=== PATIENT | female | born 1995 | race Asian ===

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

== ENCOUNTER 2017-01-08 09:57 | Outpatient (CLI) | payer MEDICAID ==
[2017-01-08 10:53] LABS: APPEARANCE,URINE SLIGHTLY-CLOUDY; BILIRUBIN,URINE NEGATIVE (NEGATIVE); GLUCOSE, URINE NEGATIVE (NEGATIVE); KETONES,URINE NEGATIVE (NEGATIVE); LEUKOCYTE ESTERASE,URINE MODERATE (NEGATIVE); NITRITE,URINE NEGATIVE (NEGATIVE); PROTEIN,URINE NEGATIVE (NEGATIVE); URINE SPECIFIC GRAVITY 1.021
[2017-01-08 11:16] LABS: URINE BARBITURATES SCREEN NEGATIVE; URINE METHADONE SCREEN NEGATIVE; URINE OPIATES LOW NEGATIVE; URINE PHENCYCLIDINE SCREEN NEGATIVE
--- NOTE | 2017-01-08 11:21 | Non Stress Test Report ---
Non Stress Test Datetime Report Generated by CPN: 01/08/2017 11:21 DEMOGRAPHIC EGA NST: 39.5 INDICATION Indication for Study: Ordered by Provider; Other Indication for Study (NST) Other: Labor check MONITORING Monitor Explained: Monitor Explained; Test Explained; Patient Verbalized Understanding Time on Monitor: 01/08/2017 10:40 Time off Monitor: 01/08/2017 11:04 NST Duration: 24 NST INTERVENTIONS NST Interventions: None Physician Notified NST: Dr Lucho BABY A: [id number] BABY A Movement : Present Contraction Frequency : Irreg FHR Baseline : 135 Accelerations : 15X15 Variability : Moderate 6-25bpm NST Review: Meets Criteria for Reactive NST NST Review and Verified By : H. Letty, RN NST Results: Reactive NST REPORT Report Trigger: Send Report
== END 2017-01-08 11:25 | disposition home or self-care (01) ==
LOC: LC 09:57
PROVIDERS: ATTEND Obstetrics & Gynecology
PROC: 4A1HXCZ Monitoring of Products of Conception, Cardiac Rate, External Approach (ICD-10-PCS; principal; 2017-01-08)
DX: O47.1 False labor at or after 37 completed weeks of gestation (principal); Z3A.39 39 weeks gestation of pregnancy
CPT/HCPCS: 59025; 80307; 81005

== ENCOUNTER 2017-01-09 06:51 | Outpatient (CLI) | payer MEDICAID ==
[2017-01-09 07:37] LABS: APPEARANCE,URINE SLIGHTLY-CLOUDY; BILIRUBIN,URINE NEGATIVE (NEGATIVE); GLUCOSE, URINE NEGATIVE (NEGATIVE); KETONES,URINE NEGATIVE (NEGATIVE); LEUKOCYTE ESTERASE,URINE SMALL (NEGATIVE); NITRITE,URINE NEGATIVE (NEGATIVE); PROTEIN,URINE NEGATIVE (NEGATIVE); URINE SPECIFIC GRAVITY 1.013; UROBILINOGEN,URINE NEGATIVE mg/dL (<2.0)
[2017-01-09 07:55] LABS: URINE BARBITURATES SCREEN NEGATIVE; URINE METHADONE SCREEN NEGATIVE; URINE OPIATES LOW NEGATIVE; URINE PHENCYCLIDINE SCREEN NEGATIVE
--- NOTE | 2017-01-09 07:59 | Non Stress Test Report ---
Non Stress Test Datetime Report Generated by CPN: 01/09/2017 07:59 DEMOGRAPHIC EGA NST: 39.6 INDICATION Indication for Study: Ordered by Provider MONITORING Monitor Explained: Monitor Explained; Test Explained; Patient Verbalized Understanding Time on Monitor: 01/09/2017 07:08 Time off Monitor: 01/09/2017 07:44 NST Duration: 36 NST INTERVENTIONS NST Interventions: PO Hydration; Reposition Patient Physician Notified NST: Dr. Lucho BABY A Movement : Present Contraction Frequency : 2-12 FHR Baseline : 125 Accelerations : 15X15 Decelerations : None Variability : Moderate 6-25bpm NST Review: Meets Criteria for Reactive NST NST Review and Verified By : CAIN Navarro Results: Reactive NST REPORT Report Trigger: Send Report (Annotations: Data stored by [facility] on behalf of user)
--- NOTE | 2017-01-09 08:01 | L&D Flow Sheet ---
LD Flowsheet Datetime Report Generated by CPN: 01/09/2017 08:00 Datetime: 01/09/2017 07:45 NBP Sys/Jane/Mean (mmHg): 98 (QS system process) : 56 (QS system process) : 75 (QS system process) Pulse: 71 (QS system process) LaborFlag: Antepartum (QS system process) Datetime: 01/09/2017 07:30 Monitor Mode: External (Jerrica Sarbjit, RN) Frequency (min): 2-7 (Jerrica Marjackifmoe, RN) Quality: Mild (Jerrica Schaffer RN) Duration (sec): 60-130 (Jerrica Schaffer RN) Resting Tone (Palpate): Relaxed (Jerrica Schaffer RN) Monitor Mode: External US (Jerrica Schaffer RN) FHR Baseline Rate : 135 (Jerrica Schaffer RN) FHR Baseline Changes: No Baseline Change (Jerrica Schaffer RN) Variability: Moderate 6-25 bpm (Jerrica Schaffer RN) Accelerations: 15X15 (Jerrica Schaffer RN) Decelerations: None (Jerrica Schaffer RN) Datetime: 01/09/2017 07:20 Frequency (min): Pt states her ctxs are every 10 min (Jerrica Schaffer RN) Pain Scale: 3 (Jerrica Schaffer RN) Pain Presence: Intermittent (Jerrica Schaffer RN) Pain Type: Contraction (Jerrica Schaffer RN) Pain Location: Abdomen (Jerrica Schaffer RN) Pain Goal: 0 (Jerrica Schaffer RN) Pain Relief Measures: Comfort Measures (Jerrica Schaffer RN) Pain Coping: Breathing Through Contractions; Writhing (Jerrica Schaffer RN) Membrane Status: Intact (Jerrica Schaffer RN) Vaginal Bleeding: None (Jerrica Schaffer RN) Level of Consciousness: Fully Conscious (Jerrica Schaffer RN) DTR's/Clonus: DTRs 2+; No Clonus (Jerrica Schaffer RN) Headache: Denies (Jerrica Marhefka, RN) Breath Sounds, Left: Clear and Equal (Jerrica Marhefka, RN) Breath Sounds, Right: Clear and Equal (Jerrica Marhefka, RN) Nausea/Vomiting: Present (Jerrica Marhefka, RN) RUQ Epigastric Pain: Denies (Jerrcia Marhefka, RN) LaborFlag: Antepartum (QS system process) Datetime: 01/09/2017 07:17 NBP Sys/Jane/Mean (mmHg): 116 (QS system process) : 55 (QS system process) : 74 (QS system process) Pulse: 94 (QS system process) Respirations: 16 (Jerrica Marhefka, RN) Temperature (F): 98.2 (Jerrica Marhefka, RN) Temperature (C): 36.8 (QS system process) Temperature Route: Oral (Jerrica Marhefka, RN) LaborFlag: Antepartum (QS system process) Datetime: 01/09/2017 07:10 Dilatation (cm): 1.5 (Jerrica Marhefka, RN) Effacement (%): 80 (Jerrica Schaffer RN) Station: -1 (Jerrica Schaffer RN) Exam by: Nicole Schaffer RN (Jerrica Schaffer RN) Membrane Status: Intact (Jerrica Schaffer RN) Cervix, Consistency: Moderate (Jerrica Schaffer RN) Cervix, Position: Posterior (Jerrica Schaffer RN) Presentation 'A': Cephalic (Jerrica Schaffer RN) Datetime: 01/09/2017 07:07 Patient Position/Activity: Right Lateral; Semi-Fowlers (Jerrica Schaffer RN) Instructional Method: Verbal; Patient Instructed; Verbalized Understanding (Jerrica Schaffer RN) Plan of Care: Plan of Care Discussed (Jerrica Schaffer RN) Unit Routine: [place] to Room; Call Augustin; Bed; Unit Personnel; Monitoring; Bathroom Privileges (Jerrica Schaffer RN)
--- NOTE | 2017-01-09 10:45 | L&D Current Admission ---
Current Admit Datetime Report Generated by CPN: 01/09/2017 10:45 ADMISSION INFORMATION Chief Complaint: Contractions (01/09/2017 07:20:Jerrica Schaffer RN) Chief Complaint: Contractions (01/08/2017 10:30:Vanna Ferris RN)
--- NOTE | 2017-01-09 10:45 | L&D General Admission ---
General Admit Datetime Report Generated by CPN: 01/09/2017 10:45 INFORMATION Patient Age: 21 (12/24/2016 10:56:QS system process) EDC: 01/10/2017 00:00 (12/24/2016 11:04:Chata López RN) EDC per Ultrasound: 01/10/2017 00:00 (12/24/2016 11:04:Vanna Ferris RN) LMP: 04/05/2016 00:00 (12/24/2016 11:04:Vanna Ferris RN) : 2 (12/24/2016 11:04:Chata López RN) Para: 0 (12/24/2016 11:04:Chata López RN) Term: 0 (12/24/2016 11:04:Vanna Ferris RN) : 0 (12/24/2016 11:04:Vanna Ferris RN) Spontaneous Abortions: 0 (12/24/2016 11:04:Vanna Ferris RN) Induced Abortions: 1 (12/24/2016 11:04:Chata López RN) Livin (12/24/2016 11:04:Vanna Ferris RN) Cesareans: 0 (12/24/2016 11:04:Vanna Ferris RN) VBACs: 0 (12/24/2016 11:04:Vanna Ferris RN) Ectopic: 0 (12/24/2016 11:04:Vanna Ferris RN) Multiple Births: 0 (12/24/2016 11:04:Vanna Ferris RN) Baby, Number in Womb: 1 (12/24/2016 11:04:Vanna Ferris RN) CARE Primary Manager Data Warehousing: [facility] (12/24/2016 11:04:Chata López RN) Month of 1st Visit: 05/2016 (12/24/2016 11:04:Vanna Ferris RN) Adequate Care: Yes (12/24/2016 11:04:Vanna Ferris RN) Prepregnancy Weight (lb): 131 (12/24/2016 11:04:Vanna Ferris RN) Prepregnancy Weight (kg): 59.5 (12/24/2016 11:04:QS system process) Height (in): 67 (01/09/2017 07:04:QS system process) Height (in): 67 (01/08/2017 10:15:QS system process) Height (in): 67 (12/24/2016 12:28:QS system process) Height (in): 67 (12/24/2016 11:22:QS system process) ALLERGIES Medication Allergy: No (12/24/2016 11:04:Chata López RN) Medication Allergies: No Known Allergies (01/09/2017) (01/09/2017 07:03:QS system process) Medication Allergies: No Known Allergies (01/08/2017) (01/08/2017 10:15:QS system process) Medication Allergies: No Known Allergies (12/24/2016) (12/24/2016 11:20:QS system process) Medication Allergies: No Known Allergies (04/29/2016) (12/24/2016 10:56:QS system process) Latex Allergy: No Latex Allergies (Annotations: Data stored by CPN on behalf of user) (12/24/2016 11:04:Chata López RN) Food Allergies: None (12/24/2016 11:04:Vanna Ferris RN) Environmental Allergies: None (12/24/2016 11:04:Vanna Ferris RN) COMMUNICATION Primary Language: Trinidadian (12/24/2016 11:04:Chata López RN) Medical Tx Preferred Language: Trinidadian (12/24/2016 11:04:Vanna Ferris RN) DEMOGRAPHICS Address: [address] [place] [id number] (12/24/2016 10:56:QS system process) Zipcode: [address] (12/24/2016 10:56:QS system process) Home (12/24/2016 10:56:QS system process) SSN: [id number] (12/24/2016 10:56:QS system process) Next of Kin Name: HUAN TUCKER (12/24/2016 10:56:QS system process) Next of Kin (12/24/2016 10:56:QS system process) Next of Kin Relationship: OR (12/24/2016 10:56:QS system process) Date of : 1995 (12/24/2016 10:56:QS system process) Marital Status: Single (12/24/2016 10:56:QS system process) Sex: Female (12/24/2016 10:56:QS system process) Race: (12/24/2016 10:56:QS system process) Ethnicity: Non- or (12/24/2016 10:56:QS system process) Zoroastrianism: Faith (12/24/2016 10:56:QS system process) DRUG AND ALCOHOL USE Alcohol: No (12/24/2016 11:04:Vanna Ferris RN) Cigarettes: Never Smoker. [id number] (12/24/2016 11:04:Vanna Ferris RN) Marijuana: No (12/24/2016 11:04:Vanna Ferris RN) Cocaine: No (12/24/2016 11:04:Vanna Ferris RN) Other Illicit Drugs: No (12/24/2016 11:04:Vanna Ferris RN) LABS Blood Type: O Positive (12/24/2016 11:04:Chata López RN) Antibody Screen: neg (12/24/2016 11:04:Chata López RN) Group Beta Strep: negative (12/24/2016 11:04:Chata López RN) Gonorrhea: Negative (12/24/2016 11:04:Chata López RN) Chlamydia: Negative (12/24/2016 11:04:Chata López RN) RPR/VDRL: Nonreactive (12/24/2016 11:04:Chata López RN) HIV Exposure Test: Negative (12/24/2016 11:04:Chata López RN) Hepatitis B: Negative (12/24/2016 11:04:Chata López RN) Rubella: Non-Immune (12/24/2016 11:04:Chata López RN) OB/PREVIOUS HISTORY LMP: 04/05/2016 00:00 (12/24/2016 11:04:Vanna Ferris RN) Previous Procedures: Ultrasound (12/24/2016 11:04:Vanna Ferris RN) Current Procedures: Ultrasound; NST (12/24/2016 11:04:Chata López RN) History of Previous : No (12/24/2016 11:04:Chata López RN) History of Gestational Diabetes: No (12/24/2016 11:04:Chata López RN) History of PIH: No (12/24/2016 11:04:Chata López RN) History of Incompetent Cervix: No (12/24/2016 11:04:Chata López RN) History of Placenta Previa/Abrup: No (12/24/2016 11:04:Chata López RN) History of Macrosomia: No (12/24/2016 11:04:Chata López RN) History of IUGR: No (12/24/2016 11:04:Chata López RN) History of Hemorrhage: No (12/24/2016 11:04:Chata López RN) History of Loss/Stillborn: No (12/24/2016 11:04:Chata López RN) History of : No (12/24/2016 11:04:Chata López RN) History of D (Rh) Sensitization: No (12/24/2016 11:04:Chata López RN) History Recurrent Loss/Stillborn: No (12/24/2016 11:04:Chata López RN) History Depression/PP Depression: No (12/24/2016 11:04:Chata López RN) History of Uterine Anomaly/SKIP: No (12/24/2016 11:04:Chata Lóepz RN) History of Infertility: No (12/24/2016 11:04:Chata López RN) History of ART Treatment: No (12/24/2016 11:04:Chata López RN) History of SKIP: No (12/24/2016 11:04:Chata López RN) Comments Obstetrical History: G1:EAB 8 weeks G2: current - abnormal AFP, negative follow-up tests (12/24/2016 11:04:Chata López RN) MEDICAL HISTORY Med Hx Diabetes: No (12/24/2016 11:04:Chata López RN) Med Hx Hypertension: No (12/24/2016 11:04:Chata López RN) Med Hx Heart Disease: No (12/24/2016 11:04:Chata López RN) Med Hx Autoimmune Disorder: No (12/24/2016 11:04:Chata López RN) Med Hx Kidney Disease/UTI: No (12/24/2016 11:04:Chata López RN) Med Hx Neurologic/Epilepsy: No (12/24/2016 11:04:Chata López RN) Med Hx Psychiatric Disorders: No (12/24/2016 11:04:Chata López RN) Med Hx Hepatitis/Liver Disease: No (12/24/2016 11:04:Chata López RN) Med Hx Varicosities/Phlebitis: No (12/24/2016 11:04:Chata López RN) Med Hx Thyroid Dysfunction: Yes (12/24/2016 11:04:Chata López RN) Med Hx Trauma/Violence: No (12/24/2016 11:04:Chata López RN) Med Hx Blood Transfusion: No (12/24/2016 11:04:Chata López RN) Med Hx Pulmonary (Asthma,TB): No (12/24/2016 11:04:Chata López RN) Med Hx Breast: No (12/24/2016 11:04:Chata López RN) Med Hx [employer] Surgery: No (12/24/2016 11:04:Chata López RN) Med Hx Hospitalization/Surgery: No (12/24/2016 11:04:Chata López RN) Med Hx Anesthetic Complications: No (12/24/2016 11:04:Chata López RN) Med Hx Abnormal Pap Smear: No (12/24/2016 11:04:Chata López RN) Other Medical Diseases: No (12/24/2016 11:04:Chata López RN) Med Hx Significant Family Hx: No (12/24/2016 11:04:Chata López RN) Details of Med/Surg Hx: Hyperthyroidism (12/24/2016 11:04:Vanna Ferris RN) INFECTIOUS HISTORY Inf Hx Gonorrhea: No (12/24/2016 11:04:Chata López RN) Inf Hx Chlamydia: Yes (12/24/2016 11:04:Chata López RN) Inf Hx Syphilis: No (12/24/2016 11:04:Chata López RN) Inf Hx HIV/AIDS: No (12/24/2016 11:04:Chata López RN) Inf Hx Human Papilloma Virus: No (12/24/2016 11:04:Chata López RN) Inf Hx Pt/Partner Genital Herpes: No (12/24/2016 11:04:Chata López RN) Inf Hx Tuberculosis/Exposure: No (12/24/2016 11:04:Chata López RN) Inf Hx Hepatitis B,C: No (12/24/2016 11:04:Chata López RN) Inf Hx Rash or Viral Illness: No (12/24/2016 11:04:Chata López RN) Details of Infectious Hx: positive chlamydia 05/2016 , neg SHANTE (12/24/2016 11:04:Chata López RN) GENETIC HISTORY Gen Hx Age >=35 at LISA: No (12/24/2016 11:04:Chata López RN) Gen Hx Thalassemia: No (12/24/2016 11:04:Chata López RN) Gen Hx Congenital Heart Defect: No (12/24/2016 11:04:Chata López RN) Gen Hx Neural Tube Defect: No (12/24/2016 11:04:Chata López RN) Gen Hx Down's Syndrome: No (12/24/2016 11:04:Chata López RN) Gen Hx Ilan-Sachs: No (12/24/2016 11:04:Chata López RN) Gen Hx Palmira: No (12/24/2016 11:04:Chata López RN) Gen Hx Familial Dysautonomia: No (12/24/2016 11:04:Chata López RN) Gen Hx Sickle Cell Disease/Trait: No (12/24/2016 11:04:Chata López RN) Gen Hx Hemophilia/Blood Disorder: No (12/24/2016 11:04:Chata López RN) Gen Hx Muscular Dystrophy: No (12/24/2016 11:04:Chaat López RN) Gen Hx Cystic Fibrosis: No (12/24/2016 11:04:Chata López RN) Gen Hx Huntingtons Chorea: No (12/24/2016 11:04:Chata López RN) Gen Hx Mental Retardation/Autism: No (12/24/2016 11:04:Chata López RN) Gen Hx Tested for Fragile X: No (12/24/2016 11:04:Chata López RN) Gen Hx Other Inher/Chromosomal: No (12/24/2016 11:04:Chata López RN) Gen Hx Maternal Metabolic DO: No (12/24/2016 11:04:Chata López RN) Gen Hx Pt Father or FOB Defect: No (12/24/2016 11:04:Chata López RN) Gen Hx Other Genetic History: No (12/24/2016 11:04:Chata López RN) Gen Hx Drugs/Meds since LMP: No (12/24/2016 11:04:Chata López RN)
--- NOTE | 2017-01-09 10:45 | L&D Flow Sheet ---
LD Flowsheet Datetime Report Generated by CPN: 01/09/2017 10:45 Datetime: 01/09/2017 07:45 NBP Sys/Jane/Mean (mmHg): 98 (QS system process) : 56 (QS system process) : 75 (QS system process) Pulse: 71 (QS system process) LaborFlag: Antepartum (QS system process) Datetime: 01/09/2017 07:30 Monitor Mode: External (Jerrica Sarbjit, RN) Frequency (min): 2-7 (Jerrica Micafmoe, RN) Quality: Mild (Jerrica Schaffer RN) Duration (sec): 60-130 (Jerrica Schaffer RN) Resting Tone (Palpate): Relaxed (Jerrica Schaffer RN) Monitor Mode: External US (Jerrica Schaffer RN) FHR Baseline Rate : 135 (Jerrica Schaffer RN) FHR Baseline Changes: No Baseline Change (Jerrica Schaffer RN) Variability: Moderate 6-25 bpm (Jerrica Schaffer RN) Accelerations: 15X15 (Jerrica Schaffer RN) Decelerations: None (Jerrica Schaffer RN) Datetime: 01/09/2017 07:20 Frequency (min): Pt states her ctxs are every 10 min (Jerrica Schaffer RN) Pain Scale: 3 (Jerrica Schaffer RN) Pain Presence: Intermittent (Jerrica Schaffer RN) Pain Type: Contraction (Jerrica Schaffer RN) Pain Location: Abdomen (Jerrica Schaffer RN) Pain Goal: 0 (Jerrica Schaffer RN) Pain Relief Measures: Comfort Measures (Jerrica Schaffer RN) Pain Coping: Breathing Through Contractions; Writhing (Jerrica Schaffer RN) Membrane Status: Intact (Jerrica Schaffer RN) Vaginal Bleeding: None (Jerrica Schaffer RN) Level of Consciousness: Fully Conscious (Jerrica Schaffer RN) DTR's/Clonus: DTRs 2+; No Clonus (Jerrica Schaffer RN) Headache: Denies (Jerrica Marhefka, RN) Breath Sounds, Left: Clear and Equal (Jerrica Marhefka, RN) Breath Sounds, Right: Clear and Equal (Jerrica Marhefka, RN) Nausea/Vomiting: Present (Jerrica Marhefka, RN) RUQ Epigastric Pain: Denies (Jerrica Marhefka, RN) LaborFlag: Antepartum (QS system process) Datetime: 01/09/2017 07:17 NBP Sys/Jane/Mean (mmHg): 116 (QS system process) : 55 (QS system process) : 74 (QS system process) Pulse: 94 (QS system process) Respirations: 16 (Jerrica Marhefka, RN) Temperature (F): 98.2 (Jerrica Marhefka, RN) Temperature (C): 36.8 (QS system process) Temperature Route: Oral (Jerrica Marhefka, RN) LaborFlag: Antepartum (QS system process) Datetime: 01/09/2017 07:10 Dilatation (cm): 1.5 (Jerrica Marhefka, RN) Effacement (%): 80 (Jerrica Schaffer RN) Station: -1 (Jerrica Schaffer RN) Exam by: Nicole Schaffer RN (Jerrica Schaffer RN) Membrane Status: Intact (Jerrica Schaffer RN) Cervix, Consistency: Moderate (Jerrica Schaffer RN) Cervix, Position: Posterior (Jerrica Schaffer RN) Presentation 'A': Cephalic (Jerrica Schaffer RN) Datetime: 01/09/2017 07:07 Patient Position/Activity: Right Lateral; Semi-Fowlers (Jerrica Shcaffer RN) Instructional Method: Verbal; Patient Instructed; Verbalized Understanding (Jerrica Schaffer RN) Plan of Care: Plan of Care Discussed (Jerrica Schaffer RN) Unit Routine: [place] to Room; Call Augustin; Bed; Unit Personnel; Monitoring; Bathroom Privileges (Jerrica Schaffer RN)
--- NOTE | 2017-01-09 10:46 | Antepartum Discharge Summary ---
Antepartum DC Datetime Report Generated by CPN: 01/09/2017 10:45 DIET/ACTIVITY/RESTRICTIONS Diet: Regular (01/09/2017 07:47:Jerrica Schaffer RN) Diet: Regular (01/08/2017 11:25:Vanna Ferris RN) Activity: Normal Activity (01/09/2017 07:47:Jerrica Schaffer RN) Activity: Normal Activity (01/08/2017 11:25:Vanna Ferris RN) TEACHING/INSTRUCTIONS/REFERRALS Instructions Given To: Pt (01/09/2017 07:47:Jerrica Schaffer RN) Instructions Given To: Patient (01/08/2017 11:25:Vanna Ferris RN) Instructions Understood: Patient Verbalized Understanding (01/09/2017 07:47:Jerrica Schaffer RN) Instructions Understood: Patient Verbalized Understanding (01/08/2017 11:25:Vanna Ferris RN) Referrals: None (01/08/2017 11:25:Vanna Ferris RN) Educational Materials- Other: Term instructions, Kick counts (01/08/2017 11:25:Vanna Ferris RN) DISCHARGE INFORMATION Discharged AMA: No (01/09/2017 07:47:Jerrica Schaffer RN) Discharged AMA: No (01/08/2017 11:25:Vanna Ferris RN) Discharge Date/Time: 01/08/2017 11:25 (01/08/2017 11:25:Vanna Ferris RN) Discharged To: Home (01/09/2017 07:47:Jerrica Schaffer RN) Discharged To: Home (01/08/2017 11:25:Vanna Ferris RN) Discharge Provider Name: Dr. Yepez (01/09/2017 07:47:Jerrica Schaffer RN) Discharge Provider Name: Dr Yepez (01/08/2017 11:25:Vanna Ferris RN) Accompanied By: Self (01/09/2017 07:47:Jerrica Schaffer RN) Accompanied By: self (01/08/2017 11:25:Vanna Ferris RN) Discharge Method: Ambulatory (01/09/2017 07:47:Jerrica Schaffer RN) Discharge Method: Ambulatory (01/08/2017 11:25:Vanna Ferris RN) Condition: Stable (01/09/2017 07:47:Jerrica Schaffer RN) Condition: Stable (01/08/2017 11:25:Vanna Ferris RN) FOLLOW UP INFORMATION Follow Up With: [facility] (01/09/2017 07:47:Jerrica Schaffer RN) Follow Up With: [facility] (01/08/2017 11:25:Vanna Ferris RN) Follow Up On: As Scheduled (01/09/2017 07:47:Jerrica Schaffer RN) Follow Up On: As Scheduled (01/08/2017 11:25:Vanna Ferris RN) Follow Up Phone Number: [facility] - (01/09/2017 07:47:Jerrica Schaffer RN) Follow Up Phone Number: [facility] - (01/08/2017 11:25:Vanna Ferris RN) Comments: Reviewed kick counts and term labor with pt. Pt received care notes yesterday. Pt verbalized understanding. (01/09/2017 07:47:Jerrica Schaffer RN) Comments: Comfort measures, PO hydration (01/08/2017 11:25:Vanna Ferris RN)
--- NOTE | 2017-01-09 10:46 | L&D Admission Assessment ---
LD ADM ASMT Datetime Report Generated by CPN: 01/09/2017 10:45 PATIENT ASSESSMENT Assessment Type: Triage (01/09/2017 07:20:Jerrica Schaffer RN) Assessment Type: Triage (01/08/2017 10:30:Vanna Caroie, RN) WEIGHT Weight (lb): 158 (01/09/2017 07:04:QS system process) Weight (lb): 158 (01/08/2017 10:15:QS system process) Weight (kg): 71.8 (01/09/2017 07:04:QS system process) Weight (kg): 71.8 (01/08/2017 10:15:QS system process) Total Wt Gain (lb): 27 (01/09/2017 07:04:QS system process) Total Wt Gain (lb): 27 (01/08/2017 10:15:QS system process) Wt Gain (kg): 12.5 (01/09/2017 07:04:QS system process) Wt Gain (kg): 12.5 (01/08/2017 10:15:QS system process) BMI: 24.7 (01/09/2017 07:04:QS system process) BMI: 24.7 (01/08/2017 10:15:QS system process) PAIN Pain Scale: 3 (01/09/2017 07:20:Jerrica Schaffer RN) Pain Scale: 2 (01/08/2017 10:30:Vanna Ferris RN) Pain Presence: Intermittent (01/09/2017 07:20:Jerrica Schaffer RN) Pain Presence: Intermittent (01/08/2017 10:30:Vanna Ferris RN) Pain Type: Contraction (01/09/2017 07:20:Jerrica Schaffer RN) Pain Type: Contraction (01/08/2017 10:30:Vanna Ferris RN) Pain Location: Abdomen (01/09/2017 07:20:Jerrica Schaffer RN) Pain Location: Abdomen (01/08/2017 10:30:Vanna Ferris RN) Pain Goal: 0 (01/09/2017 07:20:Jerrica Schaffer RN) Pain Goal: 2 (01/08/2017 10:30:Vanna Ferris RN) Pain Related to Contraction: Yes (01/09/2017 07:20:Jerrica Schaffer RN) Pain Related to Contraction: Yes (01/08/2017 10:30:Vanna Ferris RN) CONTRACTIONS Frequency (min): 2-7 (01/09/2017 07:30:Jerrica Schaffer RN) Frequency (min): Pt states her ctxs are every 10 min (01/09/2017 07:20:Jerrica Schaffer RN) Frequency (min): irreg (01/08/2017 11:04:Vanna Ferris RN) Frequency (min): 7-9 (01/08/2017 10:30:Vanna Ferris RN) Duration (sec): 60-130 (01/09/2017 07:30:Jerrica Schaffer RN) Duration (sec): 50-80 (01/08/2017 11:04:Vanna Ferris RN) Quality: Mild (01/09/2017 07:30:Jerrica Schaffer RN) Quality: Mild (01/08/2017 11:04:Vanna Ferris RN) Resting Tone [place]: Relaxed (01/09/2017 07:30:Jerrica Schaffer RN) Resting Tone [place]: Relaxed (01/08/2017 11:04:Vanna Ferris RN) VAGINAL EXAM Dilatation (cm): 1.5 (01/09/2017 07:10:Jerrica Schaffer RN) Dilatation (cm): 1.0 (01/08/2017 10:22:Vanna Ferris RN) Effacement (%): 80 (01/09/2017 07:10:Jerrica Schaffer RN) Effacement (%): 80 (01/08/2017 10:22:Vanna Ferris RN) Station: -1 (01/09/2017 07:10:Jerrica Schaffer RN) Station: -1 (01/08/2017 10:22:Vanna Ferris RN) Membranes Status: Intact (01/09/2017 07:20:Jerrica Schaffer RN) Membranes Status: Intact (01/09/2017 07:10:Jerrica Schaffer RN) NEURO Level of Consciousness: Fully Conscious (01/09/2017 07:20:Jerrica Schaffer RN) Level of Consciousness: Fully Conscious (01/08/2017 10:30:Vanna Ferris RN) DTR's/Clonus: DTRs 2+; No Clonus (01/09/2017 07:20:Jerrica Schaffer RN) DTR's/Clonus: DTRs 1+; No Clonus (01/08/2017 10:30:Vanna Ferris RN) Headache: Denies (01/09/2017 07:20:Jerrica Schaffer RN) Headache: Denies (01/08/2017 10:30:Vanna Ferris RN) Dizziness: No (01/09/2017 07:20:Jerrica Schaffer RN) Dizziness: No (01/08/2017 10:30:Vanna Ferris RN) Blurred Vision: No (01/09/2017 07:20:Jerrica Schaffer RN) Blurred Vision: No (01/08/2017 10:30:Vanna Ferris RN) Extremity Numbness/Tingling : None (01/09/2017 07:20:Jerrica Schaffer RN) Extremity Numbness/Tingling : None (01/08/2017 10:30:Vanna Ferris RN) Extremity Movement: Full Range of Motion (01/09/2017 07:20:Jerrica Schaffer RN) Extremity Movement: Full Range of Motion (01/08/2017 10:30:Vanna Ferris RN) CARDIOVASCULAR Heart Rhythm: Regular (01/09/2017 07:20:Jerrica Schaffer RN) Heart Rhythm: Regular (01/08/2017 10:30:Vanna Ferris RN) Nailbeds: [place] (01/09/2017 07:20:Jerrica Schaffer RN) Nailbeds: [place] (01/08/2017 10:30:Vanna Ferris RN) Capillary Refill: Less than 3 Seconds (01/09/2017 07:20:Jerrica Schaffer RN) Capillary Refill: Less than 3 Seconds (01/08/2017 10:30:Vanna Ferris RN) Lower Extremities Edema: None (01/09/2017 07:20:Jerrica Schaffer RN) Lower Extremities Edema: None (01/08/2017 10:30:Vanna Ferris RN) Lower Extremities Edema Degree: None (01/09/2017 07:20:Jerrica Schaffer RN) Lower Extremities Edema Degree: None (01/08/2017 10:30:Vanna Ferris RN) Upper Extremities Edema: None (01/09/2017 07:20:Jerrica Schaffer RN) Upper Extremities Edema: None (01/08/2017 10:30:Vanna Ferris RN) Upper Extremities Edema Degree: None (01/09/2017 07:20:Jerrica Schaffer RN) Upper Extremities Edema Degree: None (01/08/2017 10:30:Vanna Ferris RN) Facial Edema: None (01/09/2017 07:20:Jerrica Schaffer RN) Facial Edema: None (01/08/2017 10:30:Vanna Ferris RN) Wilian's Sign Left Leg: Negative (01/09/2017 07:20:Jerrica Schaffer RN) Wilian's Sign Right Leg: Negative (01/09/2017 07:20:Jerrica Schaffer RN) DVT RISK ASSESSMENT DVT Risk Age: Age less than 41 years (01/09/2017 07:20:Jerrica Schaffer RN) DVT Risk BMI: BMI<31 (01/09/2017 07:20:Jerrica Schaffer RN) DVT Risk Surgery: None Applicable (01/09/2017 07:20:Jerrica Schaffer RN) DVT Risk Other: Women Only- or (<1 month) (01/09/2017 07:20:Jerrica Schaffer RN) DVT Risk Total: 1 (01/09/2017 07:20:QS system process) DVT Risk Text: Low Risk (<10%) No specific measures, early ambulation (01/09/2017 07:20:QS system process) RESPIRATORY Respiratory Effort: Unlabored; Regular Rhythm; Equal Expansion (01/09/2017 07:20:Jerrica Schaffer RN) Respiratory Effort: Unlabored; Regular Rhythm; Equal Expansion (01/08/2017 10:30:Vanna Ferris RN) Breath Sounds, Left: Clear and Equal (01/09/2017 07:20:Jerrica Schaffer RN) Breath Sounds, Right: Clear and Equal (01/09/2017 07:20:Jerrica Schaffer RN) Cough Productivity: None (01/09/2017 07:20:Jerrica Schaffer RN) GASTROINTESTINAL Nausea/Vomiting: Present (01/09/2017 07:20:Jerrica Schaffer RN) Nausea/Vomiting: Denies (01/08/2017 10:30:Vanna Ferris RN) Bowel Sounds: Normoactive (01/09/2017 07:20:Jerrica Schaffer RN) RUQ Epigastric Pain: Denies (01/09/2017 07:20:Jerrica Schaffer RN) Bowel Patterns: Soft, Formed Stool (01/09/2017 07:20:Jerrica Schaffer RN) Hemorrhoids: Present (01/09/2017 07:20:Jerrica Schaffer RN) Diet Type: Regular diet (01/09/2017 07:20:Jerrica Schaffer RN) Diet Type: Regular diet (01/08/2017 10:30:Vanna Ferris RN) Last Meal: 01/08/2017 21:00 (01/09/2017 07:20:Jerrica Schaffer RN) GENITOURINARY Bladder: Nondistended (01/09/2017 07:20:Jerrica Schaffer RN) Frequency of Urination: No (01/09/2017 07:20:Jerrica Schaffer RN) Frequency of Urination: No (01/08/2017 10:30:Vanna Ferris RN) Urination Burning: No (01/09/2017 07:20:Jerrica Schaffer RN) Urination Burning: No (01/08/2017 10:30:Vanna Ferris RN) CVA Tenderness: No (01/09/2017 07:20:Jerrica Schaffer RN) Vaginal Bleeding: None (01/09/2017 07:20:Jerrica Schaffer RN) Vaginal Bleeding: None (01/08/2017 10:30:Vanna Ferris RN) Vaginal Discharge Amount: None (01/09/2017 07:20:Jerrica Schaffer RN) Vaginal Discharge Amount: None (01/08/2017 10:30:Vanna Ferris RN) Vaginal Discharge Color: N/A (01/09/2017 07:20:Jerrica Schaffer RN) Vaginal Discharge Color: N/A (01/08/2017 10:30:Vanna Ferris RN) Vaginal Discharge Odor: Non-Odorous (01/09/2017 07:20:Jerrica Schaffer RN) Vaginal Discharge Odor: Non-Odorous (01/08/2017 10:30:Vanna Ferris RN) Vaginal Discharge Character: Thin (01/09/2017 07:20:Jerrica Schaffer RN) Vaginal Discharge Character: None (01/08/2017 10:30:Vanna Ferris RN) INTEGUMENTARY Skin Color: Normal for Race (01/09/2017 07:20:Jerrica Schaffer RN) Skin Color: Normal for Race (01/08/2017 10:30:Vanna Ferris RN) Skin Temperature: Warm (01/09/2017 07:20:Jerrica Schaffer RN) Skin Temperature: Warm (01/08/2017 10:30:Vanna Ferris RN) Skin Moisture: Dry (01/09/2017 07:20:Jerrica Schaffer RN) Skin Moisture: Dry (01/08/2017 10:30:Vanna Ferris RN) DANIEL SKIN ASSESSMENT Daniel Scale Sensory Perception: No Impairment- Responds to verbal commands. Has no sensory deficit which would limit ability to feel or voice pain or discomfort (01/09/2017 07:20:Jerrica Schaffer RN) Daniel Scale Moisture: Rarely Moist- Skin is usually dry. Linen only requires changing at routine intervals (01/09/2017 07:20:Jerrica Schaffer RN) Daniel Scale Activity: Walks Frequently- Walks outside the room at least twice a day and inside room at least every 2 hours during the day. (01/09/2017 07:20:Jerrica Schaffer RN) Daniel Scale Mobility: No Limitations- Makes major and frequent changes in position without assistance (01/09/2017 07:20:Jerrica Schaffer RN) Daniel Scale Nutrition: Adequate- Eats over half of most meals. Eats a total of 4 servings of protein (meat, dairy products) each day. Occasionally will refuse a meal but will usually take a supplement if offered OR is on a tube feeding or TPN regimen which probably meets most of nutritional needs (01/09/2017 07:20:Jerrica Schaffer RN) Daniel Scale Friction and Shear: No Apparent Problem- Moves in bed and in chair independently and has sufficient muscle strength to lift up completely during move. Maintains good position in bed or chair at all times (01/09/2017 07:20:Jerrica Schaffer RN) Daniel Scale Total: 22 (01/09/2017 07:20:QS system process) Daniel Scale Risk: No Risk of Pressure Ulcer Noted at this Time (01/09/2017 07:20:QS system process) SUPPORT Family Support: Family supportive (01/09/2017 07:20:Jerrica Schaffer RN) Family Support: Family supportive (01/08/2017 10:30:Vanna Ferris RN) Emotional State: Calm/Relaxed (01/09/2017 07:20:Jerrica Schaffer RN) Emotional State: Calm/Relaxed (01/08/2017 10:30:Vanna Ferris RN) SAFETY Call [place] Within Reach: Yes (01/09/2017 07:20:Jerrica Schaffer RN) Call [place] Within Reach: Yes (01/08/2017 10:30:Vanna Ferris RN) Side Rails Up: Yes (01/09/2017 07:20:Jerrica Schaffer RN) Side Rails Up: Yes (01/08/2017 10:30:Vanna Ferris RN) Bed Wheels Locked: Yes (01/09/2017 07:20:Jerrica Schaffer RN) Bed Wheels Locked: Yes (01/08/2017 10:30:Vanna Ferris RN) Arm Bands Present: Yes (01/09/2017 07:20:Jerrica Schaffer RN) Arm Bands Present: Yes (01/08/2017 10:30:Vanna Ferris RN) Isolation: [place] (01/09/2017 07:20:Jerrica Schaffer RN) Isolation: [place] (01/08/2017 10:30:Vanna Ferris RN) FALL SCREEN Fall Risk History of Falling: (0) No (01/09/2017 07:20:Jerrica Schaffer RN) Fall Risk Secondary Diagnosis: (0) No (01/09/2017 07:20:Jerrica Schaffer RN) Fall Risk Ambulatory Aid: (0) None/Bedrest/Wheelchair/Nurse Assist (01/09/2017 07:20:Jerrica Schaffer RN) Fall Risk IV Therapy: (0) No (01/09/2017 07:20:Jerrica Schaffer RN) Fall Risk Gait: (0) Normal/Bedrest/Immobile (01/09/2017 07:20:Jerrica Schaffer RN) Fall Risk Mental Status: (0) Oriented to Own Ability (01/09/2017 07:20:Jerrica Schaffer RN) Fall Risk Score: 0 (01/09/2017 07:20:QS system process) Fall Risk Score Definition: No Risk: No action required (01/09/2017 07:20:QS system process) RECENT TRAVEL/INFECTIOUS DISEASE Recent Exp Communicable Disease: No (01/09/2017 07:20:Jerrica Schaffer RN) Cough or Fever: No (01/09/2017 07:20:Jerrica Schaffer RN) Foreign Travel Past 10 Days: No (01/09/2017 07:20:Jerrica Schaffer RN) Open Wounds or Sores: No (01/09/2017 07:20:Jerrica Schaffer RN) Prior Antibiotic Resistance Tx: No (01/09/2017 07:20:Jerrica Schaffer RN) Cultures Obtained: Not Applicable (01/09/2017 07:20:Jerrica Schaffer RN) Isolation Initiated: No (01/09/2017 07:20:Jerrica Schaffer RN) Pt/Family Education: Not Applicable (01/09/2017 07:20:Jerrica Schaffer RN) BABY A FHR Baseline Rate (bpm) Baby A: 135 (01/09/2017 07:30:Jerrica Schaffer RN) FHR Baseline Rate (bpm) Baby A: 135 (01/08/2017 11:04:Vanna Ferris RN) Variability Baby A: Moderate 6-25 bpm (01/09/2017 07:30:Jerrica Schaffer RN) Variability Baby A: Moderate 6-25 bpm (01/08/2017 11:04:Vanna Ferris RN) Accelerations Baby A: 15X15 (01/09/2017 07:30:Jerrica Schaffer RN) Accelerations Baby A: 15X15 (01/08/2017 11:04:Vanna Ferris RN) Decelerations Baby A: None (01/09/2017 07:30:Jerrica Schaffer RN) Decelerations Baby A: None (01/08/2017 11:04:Vanna Ferris RN)
--- NOTE | 2017-01-09 10:46 | L&D Discharge Summary ---
OB Discharge Summary Datetime Report Generated by CPN: 01/09/2017 10:45 DISCHARGE DIAGNOSIS Diagnosis/Symptoms: False Labor Gestation: 39.5 Number of Babies in Womb: 1 Parity: 0 DIET/ACTIVITY/RESTRICTIONS Diet: Regular Activity: Normal Activity TEACHING/INSTRUCTIONS/REFERRALS Instructions Given To: Pt Instructions Understood: Patient Verbalized Understanding Referrals: None Educational Materials- Other: Term instructions, Kick counts DISCHARGE INFORMATION Discharged AMA: No Discharge Date/Time: 01/08/2017 11:25 Discharged To: Home Discharge Provider Name: Dr. Yepez Accompanied By: Self Discharge Method: Ambulatory Condition: Stable FOLLOW UP INFORMATION Follow Up With: [facility] Follow Up On: As Scheduled Follow Up Phone Number: [facility] - Comments: Reviewed kick counts and term labor with pt. Pt received care notes yesterday. Pt verbalized understanding.
[2017-01-09] MEDS ORDERED: RINGERS SOLUTION,LACTATED 1,000 ML IV PRN (23:35)
== END 2017-01-09 07:55 | disposition home or self-care (01) ==
LOC: LC 06:51
PROVIDERS: ATTEND Obstetrics & Gynecology
PROC: 4A1HXCZ Monitoring of Products of Conception, Cardiac Rate, External Approach (ICD-10-PCS; principal; 2017-01-09)
DX: O47.1 False labor at or after 37 completed weeks of gestation (principal); Z3A.39 39 weeks gestation of pregnancy
CPT/HCPCS: 59025; 80307; 81005

== ENCOUNTER 2017-01-09 20:57 | Inpatient (IN) | payer MEDICAID ==
[2017-01-09 21:36] LABS: APPEARANCE,URINE SLIGHTLY-CLOUDY; BILIRUBIN,URINE NEGATIVE (NEGATIVE); GLUCOSE, URINE NEGATIVE (NEGATIVE); KETONES,URINE NEGATIVE (NEGATIVE); LEUKOCYTE ESTERASE,URINE TRACE (NEGATIVE); NITRITE,URINE NEGATIVE (NEGATIVE); PROTEIN,URINE 30 mg/dL (NEGATIVE); URINE SPECIFIC GRAVITY 1.027
[2017-01-09 21:52] LABS: URINE BARBITURATES SCREEN NEGATIVE; URINE METHADONE SCREEN NEGATIVE; URINE OPIATES LOW NEGATIVE; URINE PHENCYCLIDINE SCREEN NEGATIVE
[2017-01-09] MEDS ORDERED: RINGERS SOLUTION,LACTATED 1,000 ML IV PRN (22:34)
[2017-01-09] MEDS ORDERED: NALBUPHINE HCL INJ 10 MG/1 ML AMPULE INJ ONE (22:34)
[2017-01-09] MEDS ORDERED: NALBUPHINE HCL INJ 10 MG/1 ML AMPULE ONE (22:35)
[2017-01-10] MEDS ORDERED: BUPIVACAINE HCL 0.25 % INJ/PF (2.5 MG/1 ML) 30 ML VIAL ONE (01:22)
[2017-01-10] MEDS ORDERED: EPHEDRINE SULFATE INJ 50 MG/1 ML AMPULE ONE (01:22)
[2017-01-10] MEDS ORDERED: FENTANYL/BUPIVACAINE/NS/PF 200 MCG/100 ML RTUINJ EPI ONE (01:22)
[2017-01-10] MEDS: RINGERS SOLUTION,LACTATED 1,000 ML IV PRN ×3 (01:33→05:27)
[2017-01-10 01:38] LABS: ABSOLUTE LYMPHOCYTES (AUTO) 1.7 10^3/uL (0.5-4.7); ABSOLUTE MONOCYTES (AUTO) 1.1 10^3/uL (0.1-1.4); BASOPHILS % (AUTO) 0.2 % (0-2); EOSINOPHILS % (AUTO) 0.1 % (0-6); HEMATOCRIT 33.3 % (36.0-47.0); HEMOGLOBIN 11.4 g/dL (12.0-15.5); HGB HCT DIFFERENCE 0.9; LYMPHOCYTES % (AUTO) 9.1 % (13-45); MEAN CORPUSCULAR HEMOGLOBIN 30.8 pg (27.0-33.4); MEAN CORPUSCULAR HGB CONC 34.2 g/dL (32.0-36.0); MEAN CORPUSCULAR VOLUME 90 fl (80-97); MONOCYTES % (AUTO) 5.8 % (3-13); RED BLOOD COUNT 3.69 10^6/uL (3.72-5.28); RED CELL DISTRIBUTION WIDTH 13.7 % (11.5-14.0); SEGMENTED NEUTROPHILS % (AUTO) 84.8 % (42-78); WHITE BLOOD COUNT 18.9 10^3/uL (4.0-10.5)
[2017-01-10] MEDS ORDERED: OXYTOCIN/NORMAL SALINE 20 UNIT/1,000 ML RTUINJ ONE (04:03)
[2017-01-10] MEDS ORDERED: MISOPROSTOL 0.2 MG TABLET ONE (04:03)
[2017-01-10] MEDS ORDERED: LIDOCAINE 1% INJ-PF (10 MG/ML) 30 ML SDV ONE (04:03)
[2017-01-10] MEDS ORDERED: LIDOCAINE 2% INJ-PF (20 MG/ML) 10 ML AMPUL ONE (06:42)
--- NOTE | 2017-01-10 08:01 | L&D Flow Sheet ---
LD Flowsheet Datetime Report Generated by CPN: 01/10/2017 08:00 Datetime: 01/10/2017 07:47 NBP Sys/Jane/Mean (mmHg): 115 (QS system process) : 56 (QS system process) : 80 (QS system process) Pulse: 123 (QS system process) Communication Comments: patient instructed to not bear down with contractions (Nereyda Yepez RN) LaborFlag: Antepartum (QS system process) Datetime: 01/10/2017 07:45 Monitor Mode: External; Palpation (Nereyda Yepez RN) Frequency (min): 2-3 (Nereyda Yepez RN) Quality: Mild/Moderate (Nereyda Yepez, RN) Duration (sec): 110-120 (Nereyda Yepez RN) Duration Criteria: Less than Two 120 Second Contractions (Nereyda Yepez RN) Pattern: Normal: <= 5 Contractions in 10 Minutes (Nereyda Yepez RN) Resting Tone (Palpate): Relaxed (Nereyda Yepez, CAIN) Monitor Mode: External US (Nereyda Yepez RN) FHR Baseline Rate : 130 (Nereyda Yepez RN) FHR Baseline Changes: No Baseline Change (Nereyda Yepez RN) Variability: Moderate 6-25 bpm (Nereyda Yepez, RN) Accelerations: 15X15 (Nereyda Yepez, CAIN) Decelerations: None (Nereyda Yepez RN) Patient Position/Activity: Tailors (Nereyda Yepez RN) Datetime: 01/10/2017 07:35 NBP Sys/Jane/Mean (mmHg): 119 (QS system process) : 88 (QS system process) : 99 (QS system process) Pulse: 96 (QS system process) LaborFlag: Antepartum (QS system process) Datetime: 01/10/2017 07:30 Monitor Mode: External; Palpation (Nereyda Yepez, RN) Frequency (min): 2-3 (Nereyda Yepez, RN) Quality: Mild/Moderate (Nereyda Lucho, RN) Duration (sec): 70-90 (Nereyda Lucho, RN) Duration Criteria: Less than Two 120 Second Contractions (Nereyda Lucho, RN) Pattern: Normal: <= 5 Contractions in 10 Minutes (Nereyda Lucho, RN) Resting Tone (Palpate): Relaxed (Nereyda Lucho, RN) Monitor Mode: External US (Nereyda Yepez, RN) FHR Baseline Rate : 130 (Nereyda Yepez, RN) FHR Baseline Changes: No Baseline Change (Nereyda Yepez, RN) Variability: Moderate 6-25 bpm (Nereyda Lucho, RN) Accelerations: 15X15 (Nereyda Lucho, RN) Decelerations: None (Nereyda Lucho, RN) Datetime: 01/10/2017 07:15 Monitor Mode: External (Ofelia Artem, RN) Frequency (min): 1.5-3 (Ofelia Artem, RN) Quality: Strong (Ofelia Artem, RN) Duration (sec): 50-90 (Ofelia Artem, RN) Duration Criteria: Less than Two 120 Second Contractions (Ofelia Artem, RN) Pattern: Normal: <= 5 Contractions in 10 Minutes (Ofelia Artem, RN) Resting Tone (Palpate): Relaxed (Ofelia Artem, RN) Monitor Mode: External US (Ofelia Artem, RN) FHR Baseline Rate : 125 (Ofelia Artem, RN) Variability: Moderate 6-25 bpm (Ofelia Artem, RN) Accelerations: None (Ofelia Lopezco, RN) Decelerations: None (Ofelia Mcgill, RN) Hygiene: Underpad Changed (Ofelia Mcgill RN) Communication Comments: Report passed to Mayelin Yepez RN and care relinquished at this time (Ofelia Mcgill, RN) Datetime: 01/10/2017 07:03 NBP Sys/Jane/Mean (mmHg): 124 (QS system process) : 76 (QS system process) : 94 (QS system process) Pulse: 81 (QS system process) LaborFlag: Antepartum (QS system process) Datetime: 01/10/2017 07:00 Monitor Mode: External (Ofelia Mcgill, RN) Frequency (min): 1.5-4 (Ofelia Mcgill, RN) Quality: Strong (Ofelia Artem, RN) Duration (sec): 60-80 (Ofelia Lopezco, RN) Duration Criteria: Less than Two 120 Second Contractions (Ofelia Lopezco, RN) Pattern: Normal: <= 5 Contractions in 10 Minutes (Ofelia Artem, RN) Resting Tone (Palpate): Relaxed (Ofelia Artem, RN) Monitor Mode: External US (Ofelia Artem, RN) FHR Baseline Rate : 125 (Ofelia Artem, RN) Variability: Moderate 6-25 bpm (Ofelia Artem, RN) Accelerations: 15X15 (Ofelia Artem, RN) Decelerations: None (Ofelia Artem, RN) Datetime: 01/10/2017 06:58 NBP Sys/Jane/Mean (mmHg): 117 (QS system process) : 68 (QS system process) : 87 (QS system process) Pulse: 80 (QS system process) Temperature (F): 98.6 (Ofelia Artem, RN) Temperature (C): 37.0 (QS system process) Temperature Route: Axillary (Ofelia Artem, RN) LaborFlag: Antepartum (QS system process) Datetime: 01/10/2017 06:54 NBP Sys/Jane/Mean (mmHg): 122 (QS system process) : 67 (QS system process) : 88 (QS system process) Pulse: 75 (QS system process) LaborFlag: Antepartum (QS system process) Datetime: 01/10/2017 06:47 NBP Sys/Jane/Mean (mmHg): 126 (QS system process) : 79 (QS system process) : 99 (QS system process) Pulse: 96 (QS system process) LaborFlag: Antepartum (QS system process) Datetime: 01/10/2017 06:46 Anesthesia Comments: bolus with 2% lido complete (Ofelia Artem, RN) Datetime: 01/10/2017 06:45 Monitor Mode: External (Ofelia Artem, RN) Frequency (min): 2.5-4 (Ofelia Artem, RN) Quality: Strong (Ofelia Artem, RN) Duration (sec): 50-70 (Ofelia Artem, RN) Duration Criteria: Less than Two 120 Second Contractions (Ofelia Artem, RN) Pattern: Normal: <= 5 Contractions in 10 Minutes (Ofelia Artem, RN) Resting Tone (Palpate): Relaxed (Ofelia Artem, RN) Monitor Mode: External US (Ofelia Artem, RN) FHR Baseline Rate : 125 (Ofelia Artem, RN) Variability: Moderate 6-25 bpm (Ofelia Artem, RN) Accelerations: 15X15 (Ofelia Artem, RN) Decelerations: Early; Variable (Ofelia Artem, RN) Datetime: 01/10/2017 06:43 Anesthesia Comments: Dr. Gao on unit adn asked to bolus pt. for relief. Alessio varner at bedside for bolus at this time (Ofelia Artem, RN) Datetime: 01/10/2017 06:41 NBP Sys/Jane/Mean (mmHg): 124 (QS system process) : 75 (QS system process) : 95 (QS system process) Pulse: 83 (QS system process) LaborFlag: Antepartum (QS system process) Datetime: 01/10/2017 06:30 Monitor Mode: External (Ofelia Artem, RN) Frequency (min): 3-4.5 (Ofelia Artem, RN) Quality: Moderate to Strong (Ofelia Artem, RN) Duration (sec): 50-90 (Ofelia Artem, RN) Duration Criteria: Less than Two 120 Second Contractions (Ofelia Artem, RN) Pattern: Normal: <= 5 Contractions in 10 Minutes (Ofelia Artem, RN) Resting Tone (Palpate): Relaxed (Ofelia Artem, RN) Monitor Mode: External US (Ofelia Artem, RN) FHR Baseline Rate : 125 (Ofelia Artem, RN) Variability: Moderate 6-25 bpm (Ofelia Artem, RN) Accelerations: 15X15 (Ofelia Artem, RN) Decelerations: Early (Ofelia Artem, RN) Datetime: 01/10/2017 06:26 NBP Sys/Jane/Mean (mmHg): 120 (QS system process) : 71 (QS system process) : 90 (QS system process) Pulse: 89 (QS system process) LaborFlag: Antepartum (QS system process) Datetime: 01/10/2017 06:15 Monitor Mode: External (Ofelia Artem, RN) Frequency (min): 2-5 (Ofelia Artem, RN) Quality: Strong (Ofelia Artem, RN) Duration (sec): 30-80 (Ofelia Artem, RN) Duration Criteria: Less than Two 120 Second Contractions (Ofelia Artem, RN) Pattern: Normal: <= 5 Contractions in 10 Minutes (Ofelia Artem, RN) Resting Tone (Palpate): Relaxed (Ofelia Artem, RN) Contraction Comments: irritability noted (Ofelia Artem, RN) Monitor Mode: External US (Ofelia Artem, RN) FHR Baseline Rate : 125 (Ofelia Artem, RN) Variability: Moderate 6-25 bpm (Ofelia Artem, RN) Accelerations: 15X15 (Ofelia Artem, RN) Decelerations: None (Ofelia Artem, RN) Datetime: 01/10/2017 06:10 NBP Sys/Jane/Mean (mmHg): 122 (QS system process) : 77 (QS system process) : 94 (QS system process) Pulse: 95 (QS system process) LaborFlag: Antepartum (QS system process) Datetime: 01/10/2017 06:01 Pain Scale: 4 (Ofelia Artem, RN) Pain Presence: Intermittent (Ofelia Artem, RN) Pain Type: Contraction (Ofelia Artem, RN) Pain Assessment Comments: pt. reporting painful pressure (Ofelia Artem, RN) LaborFlag: Antepartum (QS system process) Datetime: 01/10/2017 06:00 Monitor Mode: External (Ofelia Artem, RN) Frequency (min): 3 (Ofelia Artem, RN) Quality: Strong (Ofelia Artem, RN) Duration (sec): 40-90 (Ofelia Artem, RN) Duration (sec): 50-90 (Foelia Artem, RN) Duration Criteria: Less than Two 120 Second Contractions (Ofelia Artem, RN) Pattern: Normal: <= 5 Contractions in 10 Minutes (Ofelia Artem, RN) Resting Tone (Palpate): Relaxed (Ofelia Artem, RN) Contraction Comments: unable to determine frequency (Ofelia Artem, RN) Monitor Mode: External US (Ofelia Artem, RN) FHR Baseline Rate : 125 (Ofelia Artem, RN) Variability: Moderate 6-25 bpm (Ofelia Artem, RN) Accelerations: 15X15 (Ofelia Artem, RN) Decelerations: None (Ofelia Artem, RN) Datetime: 01/10/2017 05:57 NBP Sys/Jane/Mean (mmHg): 121 (QS system process) : 75 (QS system process) : 93 (QS system process) Pulse: 86 (QS system process) LaborFlag: Antepartum (QS system process) Datetime: 01/10/2017 05:55 Monitor Interventions for UA: [place] Adjusted (Ofelia Mcgill RN) Datetime: 01/10/2017 05:54 NBP Sys/Jane/Mean (mmHg): 117 (QS system process) : 62 (QS system process) : 80 (QS system process) Pulse: 92 (QS system process) LaborFlag: Antepartum (QS system process) Datetime: 01/10/2017 05:52 Dilatation (cm): 6.5 (Ofelia Mcgill RN) Effacement (%): 100 (Ofelia Mcgill RN) Station: 0 (Ofelia Mcgill RN) Exam by: Rachel Sky RN (Ofelia Mcgill RN) Vaginal Bleeding: Normal Show (Ofelia Mcgill RN) Cervix, Consistency: Soft (Ofelia Mcgill RN) Cervix, Position: Midposition (Ofelia Mcgill RN) Datetime: 01/10/2017 05:45 Monitor Mode: External (Ofelia Artem, RN) Frequency (min): 6-7 (Ofelia Artem, RN) Quality: Moderate to Strong (Ofelia Artem, RN) Duration (sec): 80-90 (Ofelia Artem, RN) Duration Criteria: Less than Two 120 Second Contractions (Ofelia Artem, RN) Pattern: Normal: <= 5 Contractions in 10 Minutes (Ofelia Artem, RN) Resting Tone (Palpate): Relaxed (Ofelia Artem, RN) Contraction Comments: irritability noted (Ofelia Artem, RN) Monitor Mode: External US (Ofelia Artem, RN) FHR Baseline Rate : 125 (Ofelia Artem, RN) Variability: Moderate 6-25 bpm (Ofelia Artem, RN) Accelerations: 15X15 (Ofelia Artem, RN) Decelerations: Early (Ofelia Artem, RN) Datetime: 01/10/2017 05:41 NBP Sys/Jane/Mean (mmHg): 94 (QS system process) : 49 (QS system process) : 71 (QS system process) Pulse: 80 (QS system process) LaborFlag: Antepartum (QS system process) Datetime: 01/10/2017 05:33 IV/Blood Work: IV Infusing per Order (Ofelia Mcgill RN) Patient Care Comments: Lr to 125 ml/hr (Ofelia Mcgill RN) Datetime: 01/10/2017 05:30 NBP Sys/Jane/Mean (mmHg): 102 (QS system process) : 53 (QS system process) : 75 (QS system process) Pulse: 86 (QS system process) Temperature (F): 98.6 (Ofelia Mcgill RN) Temperature (C): 37.0 (QS system process) Temperature Route: Axillary (Ofelia Mcgill RN) Monitor Mode: External (Ofelia Mcgill RN) Frequency (min): 1-4.5 (Ofelia Mcgill RN) Quality: Strong (Ofelia Mcgill RN) Duration (sec): 40-100 (Ofelia Mcgill RN) Duration Criteria: Less than Two 120 Second Contractions (Ofelia Artem, RN) Pattern: Normal: <= 5 Contractions in 10 Minutes (Ofelia Artem, RN) Resting Tone (Palpate): Relaxed (Ofelia Artem, RN) Monitor Mode: External US (Ofelia Artem, RN) FHR Baseline Rate : 125 (Ofelia Artem, RN) Variability: Moderate 6-25 bpm (Ofelia Artem, RN) Accelerations: 15X15 (Ofelia Artem, RN) Decelerations: Early; Late; Variable (Ofelia Artem, RN) LaborFlag: Antepartum (QS system process) Datetime: 01/10/2017 05:27 IV/Blood Work: New IV Bag Hung (Ofelia Artem, RN) Datetime: 01/10/2017 05:26 Hygiene: Underpad Changed (Ofelia Artem, RN) Datetime: 01/10/2017 05:24 Pulse: 142 (QS system process) SpO2 (%): 89 (QS system process) Patient Position/Activity: Left Lateral; Peanut Ball (Ofelia Artem, RN) LaborFlag: Antepartum (QS system process) Datetime: 01/10/2017 05:22 IV/Blood Work: IV Bolus Started (Ofelia Artem, RN) Datetime: 01/10/2017 05:21 Patient Position/Activity: Right Lateral; Peanut Ball (Ofelia Artem, RN) Datetime: 01/10/2017 05:18 Dilatation (cm): 6.0 (Ofelia Artem, RN) Effacement (%): 80 (Ofelia Artem, RN) Station: 0 (Ofelia Mcgill, RN) Exam by: Irasema Mcgill RN (Ofelia Mcgill, RN) Membrane Status: Ruptured (Ofelia Mcgill, RN) Membranes Ruptured Date/Time: 01/10/2017 05:18 (Priya Sky RN) Membranes Rupture Method: Artificial (Ofelia Lopezco, RN) Amniotic Fluid Color: Clear (Ofelia Lopezco, RN) Amniotic Fluid Amount: Small (Ofelia Artem, RN) Vaginal Bleeding: None (Ofelia Artem, RN) Cervix, Consistency: Soft (Ofelia Artem, RN) Cervix, Position: Midposition (Ofelia Lopezco, RN) Communication Comments: Dr. Ireland at bedside (Ofelia Mcgill, RN) Datetime: 01/10/2017 05:15 Monitor Mode: External; Palpation (Ofelia Mcgill, RN) Frequency (min): 1.5-7 (Ofelia Lopezco, RN) Quality: Strong (Ofelia Artem, RN) Duration (sec): 40-80 (Ofelia Artem, RN) Duration Criteria: Less than Two 120 Second Contractions (Ofelia Aretm, RN) Pattern: Normal: <= 5 Contractions in 10 Minutes (Ofelia Artem, RN) Resting Tone (Palpate): Relaxed (Ofelia Artem, RN) Monitor Mode: External US (Ofelia Artem, RN) FHR Baseline Rate : 125 (Ofelia Artem, RN) Variability: Moderate 6-25 bpm (Ofelia Artem, RN) Accelerations: None (Ofelia Artem, RN) Decelerations: None (Ofelia Artem, RN) Datetime: 01/10/2017 05:13 NBP Sys/Jane/Mean (mmHg): 103 (QS system process) : 57 (QS system process) : 72 (QS system process) Pulse: 84 (QS system process) LaborFlag: Antepartum (QS system process) Datetime: 01/10/2017 05:00 Monitor Mode: External (Ofelia Artem, RN) Frequency (min): 1-8 (Ofelia Artem, RN) Quality: Strong (Ofelia Artem, RN) Duration (sec): 40-100 (Ofelia Artem, RN) Duration Criteria: Less than Two 120 Second Contractions (Ofelia Artem, RN) Pattern: Normal: <= 5 Contractions in 10 Minutes (Ofelia Artem, RN) Resting Tone (Palpate): Relaxed (Ofelia Artem, RN) Monitor Mode: External US (Ofelia Artem, RN) FHR Baseline Rate : 135 (Ofelia Artem, RN) Variability: Moderate 6-25 bpm (Ofelia Artem, RN) Accelerations: 10X10 (Ofelia Artem, RN) Decelerations: Early (Ofelia Artem, RN) Datetime: 01/10/2017 04:56 NBP Sys/Jane/Mean (mmHg): 104 (QS system process) : 59 (QS system process) : 74 (QS system process) Pulse: 75 (QS system process) LaborFlag: Antepartum (QS system process) Datetime: 01/10/2017 04:45 Monitor Mode: External (Ofelia Artem, RN) Frequency (min): 1.5-4 (Ofelia Artem, RN) Quality: Strong (Ofelia Artem, RN) Duration (sec): 40-110 (Ofelia Artem, RN) Duration Criteria: Less than Two 120 Second Contractions (Ofelia Artem, RN) Pattern: Normal: <= 5 Contractions in 10 Minutes (Ofelia Artem, RN) Resting Tone (Palpate): Relaxed (Ofelia Artem, RN) Monitor Mode: External US (Ofelia Artem, RN) FHR Baseline Rate : 135 (Ofelia Artem, RN) Variability: Moderate 6-25 bpm (Ofelia Artem, RN) Accelerations: 15X15 (Ofelia Artem, RN) Decelerations: Early (Ofelia Artem, RN) Datetime: 01/10/2017 04:41 NBP Sys/Jane/Mean (mmHg): 97 (QS system process) : 52 (QS system process) : 67 (QS system process) Pulse: 88 (QS system process) LaborFlag: Antepartum (QS system process) Datetime: 01/10/2017 04:36 Communication Comments: Dr. Ireland on unit and aware of FHT (Ofelia Mcgill RN) Datetime: 01/10/2017 04:33 NBP Sys/Jane/Mean (mmHg): 108 (QS system process) : 62 (QS system process) : 79 (QS system process) Pulse: 86 (QS system process) LaborFlag: Antepartum (QS system process) Datetime: 01/10/2017 04:32 Dilatation (cm): 8.5 (Ofelia Mcgill RN) Effacement (%): 100 (Ofelia Mcgill RN) Station: -1 (Ofelia Mcgill RN) Exam by: Irasema Mcgill RN (Ofelia Mcgill RN) Vaginal Bleeding: None (Ofelia Mcgill RN) Cervix, Consistency: Soft (Ofelia Mcgill RN) Cervix, Position: Midposition (Ofelia Mcgill RN) Datetime: 01/10/2017 04:30 Monitor Mode: External (Ofelia Artem, RN) Frequency (min): 1.5-9 (Ofelia Artem, RN) Quality: Strong (Ofelia Artem, RN) Duration (sec): 40-90 (Ofelia Artem, RN) Duration Criteria: Less than Two 120 Second Contractions (Ofelia Artem, RN) Pattern: Normal: <= 5 Contractions in 10 Minutes (Ofelia Artem, RN) Resting Tone (Palpate): Relaxed (Ofelia Artem, RN) Monitor Mode: External US (Ofelia Artem, RN) FHR Baseline Rate : 120 (Ofelia Artem, RN) Variability: Moderate 6-25 bpm (Ofelia Artem, RN) Decelerations: Early; Late; Variable (Ofelia Artem, RN) Datetime: 01/10/2017 04:29 Monitor Interventions for FHR: Ultrasound Adjusted (Ofelia Artem, RN) Actions for Decelerations: Side to Side (Ofelia Artem, RN) Comments: RN at bedside adjusting U/S (Ofelia Artem, RN) Datetime: 01/10/2017 04:26 Patient Care Comments: pt. reports constant pressure (Ofelia Artem, RN) Datetime: 01/10/2017 04:15 Monitor Mode: External; Palpation (Ofelia Artem, RN) Frequency (min): 1.5-7 (Ofelia Artem, RN) Quality: Strong (Ofelia Artem, RN) Duration (sec): 40-90 (Ofelia Artem, RN) Duration Criteria: Less than Two 120 Second Contractions (Ofelia Artem, RN) Pattern: Normal: <= 5 Contractions in 10 Minutes (Ofelia Artem, RN) Resting Tone (Palpate): Relaxed (Ofelia Artem, RN) Monitor Mode: External US (Ofelia Artem, RN) FHR Baseline Rate : 135 (Ofelia Artem, RN) Variability: Moderate 6-25 bpm (Ofelia Artem, RN) Accelerations: 15X15 (Ofelia Artem, RN) Decelerations: Early (Ofelia Artem, RN) Datetime: 01/10/2017 04:11 NBP Sys/Jane/Mean (mmHg): 108 (QS system process) : 53 (QS system process) : 75 (QS system process) Pulse: 78 (QS system process) LaborFlag: Antepartum (QS system process) Datetime: 01/10/2017 04:06 Patient Position/Activity: Right Lateral; Peanut Ball (Ofelia Artem, RN) Datetime: 01/10/2017 04:00 Monitor Mode: External (Ofelia Artem, RN) Frequency (min): 2-5 (Ofelia Artem, RN) Quality: Strong (Ofelia Artem, RN) Duration (sec): 50-100 (Ofelia Artem, RN) Duration Criteria: Less than Two 120 Second Contractions (Ofelia Artem, RN) Pattern: Normal: <= 5 Contractions in 10 Minutes (Ofelia Artem, RN) Resting Tone (Palpate): Relaxed (Ofelia Artem, RN) Monitor Mode: External US (Ofelia Artem, RN) FHR Baseline Rate : 125 (Ofelia Artem, RN) Variability: Moderate 6-25 bpm (Ofelia Artem, RN) Accelerations: 15X15 (Ofelia Artem, RN) Decelerations: Early (Ofelia Artem, RN) Datetime: 01/10/2017 03:56 NBP Sys/Jane/Mean (mmHg): 116 (QS system process) : 60 (QS system process) : 79 (QS system process) Pulse: 88 (QS system process) LaborFlag: Antepartum (QS system process) Datetime: 01/10/2017 03:45 Monitor Mode: External (Ofelia Artem, RN) Frequency (min): 1.5-5.5 (Ofelia Artem, RN) Quality: Strong (Ofelia Artem, RN) Duration (sec): 40-90 (Ofelia Artem, RN) Duration Criteria: Less than Two 120 Second Contractions (Ofelia Artem, RN) Pattern: Normal: <= 5 Contractions in 10 Minutes (Ofelia Artem, RN) Resting Tone (Palpate): Relaxed (Ofelia Artem, RN) Monitor Mode: External US (Ofelia Artem, RN) FHR Baseline Rate : 130 (Ofelia Artem, RN) Variability: Moderate 6-25 bpm (Ofelia Artem, RN) Accelerations: 15X15 (Ofelia Artem, RN) Decelerations: Early (Ofelia Artem, RN) Datetime: 01/10/2017 03:42 NBP Sys/Jane/Mean (mmHg): 112 (QS system process) : 60 (QS system process) : 80 (QS system process) Pulse: 64 (QS system process) LaborFlag: Antepartum (QS system process) Datetime: 01/10/2017 03:30 Monitor Mode: External (Ofelia Artem, RN) Frequency (min): 2-5 (Ofelia Artem, RN) Quality: Strong (Ofelia Artem, RN) Duration (sec): 40-90 (Ofelia Artem, RN) Duration Criteria: Less than Two 120 Second Contractions (Ofelia Artem, RN) Pattern: Normal: <= 5 Contractions in 10 Minutes (Ofelia Artem, RN) Resting Tone (Palpate): Relaxed (Ofelia Artem, RN) Monitor Mode: External US (Ofelia Artem, RN) FHR Baseline Rate : 135 (Ofelia Artem, RN) Variability: Moderate 6-25 bpm (Ofelia Artem, RN) Accelerations: 15X15 (Ofelia Artem, RN) Decelerations: None (Ofelia Artem, RN) Datetime: 01/10/2017 03:26 NBP Sys/Jane/Mean (mmHg): 118 (QS system process) : 70 (QS system process) : 88 (QS system process) Pulse: 75 (QS system process) LaborFlag: Antepartum (QS system process) Datetime: 01/10/2017 03:15 Monitor Mode: External (Ofelia Artem, RN) Frequency (min): 1.5-7 (Ofelia Artem, RN) Quality: Strong (Ofelia Artem, RN) Duration (sec): 50-80 (Ofelia Artem, RN) Duration Criteria: Less than Two 120 Second Contractions (Ofelia Artem, RN) Pattern: Normal: <= 5 Contractions in 10 Minutes (Ofelia Artem, RN) Resting Tone (Palpate): Relaxed (Ofelia Artem, RN) Monitor Mode: External US (Ofelia Artem, RN) FHR Baseline Rate : 125 (Ofelia Artem, RN) Variability: Moderate 6-25 bpm (Ofelia Artem, RN) Accelerations: 15X15 (Ofelia Artem, RN) Decelerations: Early (Ofelia Artem, RN) Datetime: 01/10/2017 03:12 NBP Sys/Jane/Mean (mmHg): 115 (QS system process) : 65 (QS system process) : 84 (QS system process) Pulse: 71 (QS system process) LaborFlag: Antepartum (QS system process) Datetime: 01/10/2017 03:00 Monitor Mode: External; Palpation (Ofelia Artem, RN) Frequency (min): 1.5-4.5 (Ofelia Artem, RN) Quality: Strong (Ofelia Artem, RN) Duration (sec): 40-90 (Ofelia Artem, RN) Duration Criteria: Less than Two 120 Second Contractions (Ofelia Artem, RN) Pattern: Normal: <= 5 Contractions in 10 Minutes (Ofelia Artem, RN) Resting Tone (Palpate): Relaxed (Ofelia Artem, RN) Monitor Mode: External US (Ofelia Artem, RN) FHR Baseline Rate : 130 (Ofelia Artem, RN) Variability: Moderate 6-25 bpm (Ofelia Artem, RN) Accelerations: 15X15 (Ofelia Artem, RN) Decelerations: Early (Ofelia Artem, RN) Datetime: 01/10/2017 02:55 NBP Sys/Jane/Mean (mmHg): 107 (QS system process) : 55 (QS system process) : 75 (QS system process) Pulse: 102 (QS system process) LaborFlag: Antepartum (QS system process) Datetime: 01/10/2017 02:54 NBP Sys/Jane/Mean (mmHg): 110 (QS system process) : 57 (QS system process) : 80 (QS system process) Pulse: 89 (QS system process) LaborFlag: Antepartum (QS system process) Datetime: 01/10/2017 02:53 NBP Sys/Jane/Mean (mmHg): 107 (QS system process) : 52 (QS system process) : 75 (QS system process) Pulse: 78 (QS system process) Dilatation (cm): 5.0 (Ofelia Mcgill RN) Effacement (%): 90 (Ofelia Mcgill RN) Exam by: Irasema Mcgill RN (Ofelia Mcgill RN) Vaginal Exam Comments: buldging bag of water (Ofelia Mcgill RN) I/O Interventions: Lee Cath Inserted (Ofelia Mcgill RN) LaborFlag: Antepartum (QS system process) Datetime: 01/10/2017 02:52 NBP Sys/Jane/Mean (mmHg): 115 (QS system process) : 56 (QS system process) : 80 (QS system process) Pulse: 95 (QS system process) LaborFlag: Antepartum (QS system process) Datetime: 01/10/2017 02:51 NBP Sys/Jane/Mean (mmHg): 122 (QS system process) : 67 (QS system process) : 88 (QS system process) Pulse: 90 (QS system process) LaborFlag: Antepartum (QS system process) Datetime: 01/10/2017 02:50 Pulse: 86 (QS system process) SpO2 (%): 99 (QS system process) LaborFlag: Antepartum (QS system process) Datetime: 01/10/2017 02:49 NBP Sys/Jane/Mean (mmHg): 107 (QS system process) : 57 (QS system process) : 77 (QS system process) Pulse: 72 (QS system process) LaborFlag: Antepartum (QS system process) Datetime: 01/10/2017 02:48 NBP Sys/Jane/Mean (mmHg): 113 (QS system process) NBP Sys/Jane/Mean (mmHg): 108 (QS system process) : 55 (QS system process) : 77 (QS system process) : 75 (QS system process) Pulse: 84 (QS system process) Pulse: 74 (QS system process) LaborFlag: Antepartum (QS system process) Datetime: 01/10/2017 02:47 NBP Sys/Jane/Mean (mmHg): 112 (QS system process) : 57 (QS system process) : 76 (QS system process) Pulse: 85 (QS system process) LaborFlag: Antepartum (QS system process) Datetime: 01/10/2017 02:46 Epidural Procedure Other: Pump Started (Ofelia Artem, RN) Datetime: 01/10/2017 02:45 Pulse: 92 (QS system process) SpO2 (%): 99 (QS system process) Contraction Comments: unable to determine, toco off for epidural placement (Ofelia Artem, RN) Monitor Mode: External US (Ofelia Artem, RN) FHR Baseline Rate : 130 (Ofelia Artem, RN) Variability: Moderate 6-25 bpm (Ofelia Artem, RN) Accelerations: 15X15 (Ofelia Artem, RN) Decelerations: Early (Ofelia Artem, RN) Patient Position/Activity: Left Lateral; Peanut Ball (Ofelai Artem, RN) LaborFlag: Antepartum (QS system process) Datetime: 01/10/2017 02:42 NBP Sys/Jane/Mean (mmHg): 131 (QS system process) : 55 (QS system process) : 75 (QS system process) Pulse: 91 (QS system process) Epidural Procedure: Cath Placed (Ofelia Artem, RN) LaborFlag: Antepartum (QS system process) Datetime: 01/10/2017 02:41 NBP Sys/Jane/Mean (mmHg): 128 (QS system process) : 71 (QS system process) : 94 (QS system process) Pulse: 86 (QS system process) Epidural Procedure: Loading Dose (Ofelia Artem, RN) LaborFlag: Antepartum (QS system process) Datetime: 01/10/2017 02:40 NBP Sys/Jane/Mean (mmHg): 126 (QS system process) : 70 (QS system process) : 92 (QS system process) Pulse: 81 (QS system process) Pulse: 86 (QS system process) SpO2 (%): 98 (QS system process) LaborFlag: Antepartum (QS system process) Datetime: 01/10/2017 02:39 Epidural Procedure: Test Dose (Ofelia Ratem, RN) Datetime: 01/10/2017 02:35 Pulse: 88 (QS system process) SpO2 (%): 100 (QS system process) LaborFlag: Antepartum (QS system process) Datetime: 01/10/2017 02:31 NBP Sys/Jane/Mean (mmHg): 117 (QS system process) : 67 (QS system process) : 84 (QS system process) Pulse: 85 (QS system process) LaborFlag: Antepartum (QS system process) Datetime: 01/10/2017 02:30 Pulse: 88 (QS system process) SpO2 (%): 100 (QS system process) Anesthesia Comments: dr frankie at bedside (Ofelia Mcgill RN) LaborFlag: Antepartum (QS system process) Datetime: 01/10/2017 02:25 Pulse: 76 (QS system process) SpO2 (%): 100 (QS system process) LaborFlag: Antepartum (QS system process) Datetime: 01/10/2017 02:24 Procedure Verify: Correct Patient Identity; Correct Side and Site are Marked; Accurate Procedure Consent Form; Agreement on Procedure to be Done; Correct Patient Position (Ofelia Artem, RN) Anesthesia Plans: Epidural (Ofelia Artem, RN) Epidural Positioning: Sitting (Ofelia Artem, RN) Datetime: 01/10/2017 02:21 NBP Sys/Jane/Mean (mmHg): 122 (QS system process) : 70 (QS system process) : 89 (QS system process) Pulse: 82 (QS system process) LaborFlag: Antepartum (QS system process) Datetime: 01/10/2017 02:20 Pulse: 74 (QS system process) SpO2 (%): 99 (QS system process) LaborFlag: Antepartum (QS system process) Datetime: 01/10/2017 02:19 Monitor Interventions for FHR: Ultrasound Adjusted (Ofelia Artem, RN) Comments: RN at bedside pt. sitting for epidural (Ofelia Artem, RN) Datetime: 01/10/2017 02:15 Monitor Mode: External (Ofelia Artem, RN) Frequency (min): 1-6 (Ofelia Artem, RN) Quality: Moderate to Strong (Ofelia Artem, RN) Duration (sec): 40-80 (Ofelia Artem, RN) Duration Criteria: Less than Two 120 Second Contractions (Ofelia Artem, RN) Pattern: Normal: <= 5 Contractions in 10 Minutes (Ofelia Artem, RN) Resting Tone (Palpate): Relaxed (Ofelia Artem, RN) Monitor Mode: External US (Ofelia Artem, RN) FHR Baseline Rate : 125 (Ofelia Artem, RN) Variability: Moderate 6-25 bpm (Ofelia Artem, RN) Accelerations: 15X15 (Ofelia Artem, RN) Decelerations: Early (Ofelia Artem, RN) Datetime: 01/10/2017 02:12 Procedure Verify: Correct Patient Identity; Correct Side and Site are Marked; Accurate Procedure Consent Form; Agreement on Procedure to be Done; Correct Patient Position (Ofelia Artem, RN) Anesthesia Plans: Epidural (Ofelia Artem, RN) Epidural Positioning: Sitting (Ofelia Artem, RN) Datetime: 01/10/2017 02:02 Procedure Verify: Correct Patient Identity; Correct Side and Site are Marked; Accurate Procedure Consent Form; Agreement on Procedure to be Done; Correct Patient Position (Ofelia Artem, RN) Anesthesia Plans: Epidural (Ofelia Artem, RN) Epidural Positioning: Sitting (Ofelia Artem, RN) Anesthesia Comments: dr. gao called for epidural (Ofelia Artem, RN) Datetime: 01/10/2017 02:01 NBP Sys/Jane/Mean (mmHg): 110 (QS system process) : 66 (QS system process) : 82 (QS system process) Pulse: 82 (QS system process) LaborFlag: Antepartum (QS system process) Datetime: 01/10/2017 01:45 Monitor Mode: External; Palpation (Ofelia Artem, RN) Frequency (min): 1-5 (Ofelia Artem, RN) Quality: Moderate to Strong (Ofelia Artem, RN) Duration (sec): 40-80 (Ofelia Artem, RN) Duration Criteria: Less than Two 120 Second Contractions (Ofelia Artem, RN) Pattern: Normal: <= 5 Contractions in 10 Minutes (Ofelia Artem, RN) Resting Tone (Palpate): Relaxed (Ofelia Artem, RN) Contraction Comments: irritability noted (Ofelia Artem, RN) Monitor Mode: External US (Ofelia Artem, RN) FHR Baseline Rate : 120 (Ofelia Artem, RN) Variability: Moderate 6-25 bpm (Ofelia Artem, RN) Accelerations: 15X15 (Ofelia Artem, RN) Decelerations: Early (Ofelia Artem, RN) Datetime: 01/10/2017 01:33 IV/Blood Work: New IV Bag Hung (Priya Sky, RN) Datetime: 01/10/2017 01:31 NBP Sys/Jane/Mean (mmHg): 121 (QS system process) : 75 (QS system process) : 92 (QS system process) Pulse: 74 (QS system process) Temperature (F): 98.0 (Ofelia Artem, RN) Temperature (C): 36.7 (QS system process) Temperature Route: Axillary (Ofelia Artem, RN) LaborFlag: Antepartum (QS system process) Datetime: 01/10/2017 01:30 Pain Scale: 5 (Ofelia Artem, RN) LaborFlag: Antepartum (QS system process) Datetime: 01/10/2017 01:21 NBP Sys/Jane/Mean (mmHg): 131 (QS system process) : 80 (QS system process) : 96 (QS system process) Pulse: 74 (QS system process) LaborFlag: Antepartum (QS system process) Datetime: 01/10/2017 01:17 Communication Comments: Dr. ireland called and notified of pt. SVE and need for pain medication. New orders received to admit pt. at this time and pt. may have epidural at this time (Ofelia Artem, RN) Datetime: 01/10/2017 01:15 Monitor Mode: External (Ofelia Artem, RN) Frequency (min): 1-5 (Ofelia Artem, RN) Quality: Moderate to Strong (Ofelia Artem, RN) Duration (sec): 40-90 (Ofelia Artem, RN) Duration Criteria: Less than Two 120 Second Contractions (Ofelia Artem, RN) Pattern: Normal: <= 5 Contractions in 10 Minutes (Ofelia Artem, RN) Resting Tone (Palpate): Relaxed (Ofelia Artem, RN) Monitor Mode: External US (Ofelia Artem, RN) FHR Baseline Rate : 125 (Ofelia Artem, RN) Variability: Moderate 6-25 bpm (Ofelia Artem, RN) Accelerations: 15X15 (Ofelia Artem, RN) Decelerations: Early (Ofelia Artem, RN) Datetime: 01/10/2017 01:14 Dilatation (cm): 4.0 (Ofelia Artem, RN) Effacement (%): 90 (Ofelia Artem, RN) Station: -1 (Ofelia Artem, RN) Exam by: Irasema Mcgill RN (Ofelia Mcgill RN) Vaginal Bleeding: None (Ofelia Mcgill RN) Cervix, Consistency: Soft (Ofelia Mcgill, RN) Cervix, Position: Posterior (Ofelia Mcgill, RN) Vaginal Exam Comments: buldging bag of water (Ofelia Lopezco, RN) Datetime: 01/10/2017 01:12 Pain Scale: 5 (Ofelia Mcgill RN) Pain Coping: Requesting Pain Medication or Epidural (Ofelia Mcgill, RN) LaborFlag: Antepartum (QS system process) Datetime: 01/10/2017 00:45 Monitor Mode: External (Ofelia Mcgill, RN) Frequency (min): 1-4.5 (Ofelia Mcgill, RN) Quality: Moderate to Strong (Ofelia Artem, RN) Duration (sec): 40-70 (Ofelia Artem, RN) Duration Criteria: Less than Two 120 Second Contractions (Ofelia Lopezco, RN) Pattern: Normal: <= 5 Contractions in 10 Minutes (Ofelia Artem, RN) Resting Tone (Palpate): Relaxed (Ofelia Artem, RN) Monitor Mode: External US (Ofelia Artem, RN) FHR Baseline Rate : 125 (Ofelia Artem, RN) Variability: Moderate 6-25 bpm (Ofelia Artem, RN) Accelerations: 10X10 (Ofelia Artem, RN) Decelerations: Early (Ofelia Artem, RN) Datetime: 01/10/2017 00:26 I/O Interventions: Up to BR (Ofelia Artem, RN) Datetime: 01/10/2017 00:15 Monitor Mode: External; Palpation (Ofelia Artem, RN) Frequency (min): 1-5 (Ofelia Artem, RN) Quality: Moderate to Strong (Ofelia Artem, RN) Duration (sec): 40-80 (Ofelia Artem, RN) Duration Criteria: Less than Two 120 Second Contractions (Ofelia Artem, RN) Pattern: Normal: <= 5 Contractions in 10 Minutes (Ofelia Artem, RN) Resting Tone (Palpate): Relaxed (Ofelia Artem, RN) Monitor Mode: External US (Ofelia Artem, RN) FHR Baseline Rate : 125 (Ofelia Artem, RN) Variability: Moderate 6-25 bpm (Ofelia Artem, RN) Accelerations: 15X15 (Ofelia Artem, RN) Decelerations: Early (Ofelia Artem, RN) Datetime: 01/10/2017 00:01 NBP Sys/Jane/Mean (mmHg): 118 (QS system process) : 62 (QS system process) : 82 (QS system process) Pulse: 78 (QS system process) LaborFlag: Antepartum (QS system process) Datetime: 01/09/2017 23:58 Pain Scale: 5 (Ofelia Mcgill RN) Pain Assessment Comments: pt. states that her pain with ctn's remains a 5/5. Upon assessment pt. awakens with ctn's and breaths through them (Ofelia Mcgill, RN) LaborFlag: Antepartum (QS system process) Datetime: 01/09/2017 23:55 I/O Interventions: Up to BR (Ofelia Artem, RN) Datetime: 01/09/2017 23:45 Monitor Mode: External; Palpation (Ofelia Artem, RN) Frequency (min): 1-7 (Ofelia Artem, RN) Quality: Moderate (Ofelia Artem, RN) Duration (sec): 40-110 (Ofelia Artem, RN) Duration Criteria: Less than Two 120 Second Contractions (Ofelia Artem, RN) Pattern: Normal: <= 5 Contractions in 10 Minutes (Ofelia Artem, RN) Resting Tone (Palpate): Relaxed (Ofelia Artem, RN) Contraction Comments: triplets noted (Ofelia Artem, RN) Monitor Mode: External US (Ofelia Artem, RN) FHR Baseline Rate : 125 (Ofelia Artem, RN) Variability: Moderate 6-25 bpm (Ofelia Artem, RN) Accelerations: 15X15 (Ofelia Artem, RN) Decelerations: Early (Ofelia Artem, RN) Datetime: 01/09/2017 23:31 NBP Sys/Jane/Mean (mmHg): 99 (QS system process) : 56 (QS system process) : 73 (QS system process) Pulse: 78 (QS system process) Temperature (F): 98.3 (Ofelia Artem, RN) Temperature (C): 36.8 (QS system process) Temperature Route: Axillary (Ofelia Artem, RN) LaborFlag: Antepartum (QS system process) Datetime: 01/09/2017 23:30 Patient Care Comments: LR to 125 ml/hr (Ofelia Artem, RN) Datetime: 01/09/2017 23:15 Monitor Mode: External; Palpation (Ofelia Artem, RN) Frequency (min): 1-7 (Ofelia Artem, RN) Quality: Moderate (Ofelia Artem, RN) Duration (sec): 50-90 (Ofelia Artem, RN) Duration Criteria: Less than Two 120 Second Contractions (Ofelia Artem, RN) Pattern: Normal: <= 5 Contractions in 10 Minutes (Ofelia Artem, RN) Resting Tone (Palpate): Relaxed (Ofelia Artem, RN) Monitor Mode: External US (Ofelia Artem, RN) FHR Baseline Rate : 125 (Ofelia Artem, RN) Variability: Minimal - Undetectable to <=5 bpm (Ofelia Artem, RN) Accelerations: 15X15 (Ofelia Artem, RN) Decelerations: None (Ofelia Ratem, RN) Datetime: 01/09/2017 23:11 Pain Coping: Sleeping (Ofelia Artem, RN) Datetime: 01/09/2017 23:10 Monitor Interventions for UA: [place] Adjusted (Ofelia Artem, RN) Datetime: 01/09/2017 22:54 Patient Position/Activity: Right Tilt (Ofelia Artem, RN) I/O Interventions: Ice Chips Given; Popsicle; Clear Liquids Given (Ofelia Artem, RN) Datetime: 01/09/2017 22:53 Pain Scale: 5 (Ofelia Artem, RN) Analgesics/Sedatives: Nubain (mg) @ 10 mg IV push x1 dose for pain (Ofelia Artem, RN) LaborFlag: Antepartum (QS system process) Datetime: 01/09/2017 22:50 Patient Care Comments: consents signed (Ofelia Artem, RN) Datetime: 01/09/2017 22:45 Monitor Mode: External; Palpation (Ofelia Artem, RN) Frequency (min): 1.5-5 (Ofelia Artem, RN) Quality: Moderate (Ofelia Artem, RN) Duration (sec): 40-90 (Ofelia Artem, RN) Duration Criteria: Less than Two 120 Second Contractions (Ofelia Artem, RN) Pattern: Normal: <= 5 Contractions in 10 Minutes (Ofelia Artem, RN) Resting Tone (Palpate): Relaxed (Ofelia Artem, RN) Contraction Comments: irritability noted (Ofelia Artem, RN) Monitor Mode: External US (Ofelia Artem, RN) FHR Baseline Rate : 125 (Ofelia Artem, RN) Variability: Moderate 6-25 bpm (Ofelia Artem, RN) Accelerations: 15X15 (Ofelia Artem, RN) Decelerations: None (Ofelia Artem, RN) IV/Blood Work: IV Started; IV Bolus Started (Ofelia Artem, RN) Patient Care Comments: LR bolus started (Ofelia Artem, RN) Datetime: 01/09/2017 22:24 Communication Comments: Dr. Ireland called and notified on SVEE, pain level, hx, urine results, FHT, and toco tracing. New orders received to start IV and give 1 LR fluid bolus then follow with 125 ml/hr. Nubain 10 mg IV x1 dose for pain. (Ofelia Lopezco, RN) Datetime: 01/09/2017 22:21 NBP Sys/Jane/Mean (mmHg): 115 (QS system process) : 61 (QS system process) : 83 (QS system process) Pulse: 78 (QS system process) LaborFlag: Antepartum (QS system process) Datetime: 01/09/2017 22:20 Patient Care Comments: pt. bouncing on ball (Ofelia Mcgill RN) Datetime: 01/09/2017 22:15 NBP Sys/Jane/Mean (mmHg): 186 (Annotations: pt. moving and arm bent, bp retaken) (Ofelia Mcgill RN) : 66 (QS system process) : 95 (QS system process) Pulse: 78 (QS system process) LaborFlag: Antepartum (QS system process) Datetime: 01/09/2017 22:11 Dilatation (cm): 3.0 (Ofelia Mcgill RN) Effacement (%): 90 (Ofelia Mcgill RN) Station: -1 (Ofelia Mcgill RN) Exam by: Irasema Mcgill RN (Ofelia Mcgill RN) Vaginal Bleeding: None (Ofelia Mcgill RN) Cervix, Consistency: Soft (Ofelia Mcgill RN) Cervix, Position: Posterior (Ofelia Mcgill RN) Datetime: 01/09/2017 21:39 Monitor Mode: External; Palpation (Ofelia Artem, RN) Frequency (min): 2-4 (Ofelia Artem, RN) Quality: Moderate to Strong (Ofelia Artem, RN) Duration (sec): 40-70 (Ofelia Artem, RN) Duration Criteria: Less than Two 120 Second Contractions (Ofelia Artem, RN) Pattern: Normal: <= 5 Contractions in 10 Minutes (Ofelia Artem, RN) Resting Tone (Palpate): Relaxed (Ofelia Artem, RN) Monitor Mode: External US (Ofelia Artem, RN) FHR Baseline Rate : 135 (Ofelia Artem, RN) Variability: Moderate 6-25 bpm (Ofelia Artem, RN) Accelerations: 15X15 (Ofelia Artem, RN) Decelerations: Variable (Ofelia Artem, RN) Patient Care Comments: pt. verbalizes understanding and denies any questions or concerns at this time (Ofelia Mcgill, RN) Patient Care Comments: monitors d/c for pt to walk at least 30 min. Ball provided for pt. at bedside (Ofelia Lopezco, RN) Datetime: 01/09/2017 21:22 NBP Sys/Jane/Mean (mmHg): 128 (QS system process) : 80 (QS system process) : 94 (QS system process) Pulse: 70 (QS system process) Temperature (F): 98.4 (Ofelia Artem, RN) Temperature (C): 36.9 (QS system process) Temperature Route: Axillary (Ofelia Artem, RN) LaborFlag: Antepartum (QS system process) Datetime: 01/09/2017 21:18 Level of Consciousness: Fully Conscious (Ofelia Artem, RN) DTR's/Clonus: DTRs 2+; No Clonus (Ofelia Artem, RN) Headache: Denies (Ofelia Artem, RN) Breath Sounds, Left: Clear and Equal (Ofelia Artem, RN) Breath Sounds, Right: Clear and Equal (Ofelia Artem, RN) Nausea/Vomiting: Denies (Ofelia Artem, RN) RUQ Epigastric Pain: Denies (Ofelia Artem, RN) Datetime: 01/09/2017 21:16 Pain Scale: 5 (Ofelia Artem, RN) Pain Presence: Intermittent (Ofelia Mcgill RN) Pain Type: Contraction (Ofelia Mcgill RN) Pain Location: Abdomen (Ofelia Mcgill RN) Patient Position/Activity: Left Lateral (Ofelia Mcgill RN) I/O Interventions: Ice Chips Given; Clear Liquids Given (Ofelia Mcgill RN) LaborFlag: Antepartum (QS system process) Datetime: 01/09/2017 21:15 Dilatation (cm): 2.0 (Bing Alvarado RN) Effacement (%): 80 (Bing Alvarado RN) Station: -1 (Bing Alvarado, CAIN) Exam by: Nitza Mcgill RN (Bing Alvarado RN) Membrane Status: Bulging (Bing Alvarado RN) Communication Comments: Dr. Ireland aware of SVE and patient arrival. Orders to obtain reactive NST and then may ambulate. (Priya Sky RN)
--- NOTE | 2017-01-10 08:58 | L&D Progress Notes ---
PROGRESS NOTES Datetime Report Generated by CPN: 01/10/2017 08:58 PROGRESS NOTE Impression: Normal Progression of Labor Plan: Continue Present Management Informed Consent Obtained: Vaginal Delivery; Risks, Benefits and Alternatives Discussed Vital Signs : Reviewed Comment: 21 yo in active labor EDC 01/10/17 EGA 40 weeks with increased urge to push phx- chlamydia treated 06/09 rubella non immune abnormal afp- informaseq normal low TSh- on methimazole abdomen nontender FHTs 120s reactive nst Hyperthyroidisim Teenage Active labor prep for delivery- initiate pushing anticipate delivery VAGINAL EXAM Contractions: q1-4 MEMBRANES Membranes: Ruptured Membranes: Intact Amniotic Fluid Color: Clear FETUS A Monitoring: External US Variability: Moderate 6-25bpm Accelerations: 15X15 Decelerations: None FHR Category: Category I : 40.0 SIGNATURE SIGNATURE: [id number] SIGNATURE: [id number] SIGNATURE: [id number] SIGNATURE: [id number] Assignment: Adan Cantu MD Signature: with User ID: [email or web address] : with User ID: [email or web address]
--- NOTE | 2017-01-10 10:19 | Delivery Summary ---
Del Sum A-C Datetime Report Generated by CPN: 01/10/2017 10:19 ADMISSION DATA Chief Complaint: Uterine Contractions Indication for Induction: Not Applicable Admission Impression: Term, Intrauterine ; Active Labor; Intact Membranes Admit Provider Comments: 39+6 presented several times today with protracted latent phase. Early labor now. GBS neg. Plan epidural as needed. pain meds given DELIVERY PERSONNEL Delivery Doctor:: Eliceo Lucio CNM Labor and Delivery Nurse:: Nereyda Yepez RNstockholder Nurse:: Ayleen Bellavance, RNC MATERNAL INFORMATION Delivery Anesthesia: Epidural Medications After Delivery: Pitocin Bolus-Please Comment Meds After Delivery Comment: 20 units Pitocin in 1 L NS bolusing per order Estimated Blood Loss (ml): 300 Maternal Complications: None Provider Comments: pt with increased urge to push decelerations with return to baseline delivery of viable male BOB apgars 8/9 bulb suctioned on perineum to abdomen cord clamped and cut by pt's mother cord blood obtained placenta intact- small sent to pathology perineum intact EBL 300 cc hemostasis achieved LABOR SUMMARY EDC: 01/10/2017 00:00 No. Babies in Womb: 1 Attempted: No Labor Anesthesia: Epidural LABOR INFORMATION Reason for Induction: Not Applicable Onset of Labor: 01/10/2017 01:14 Complete Dilatation: 01/10/2017 08:14 Oxytocin: N/A Group B Beta Strep: negative Antibiotics # of Doses: 0 Name of Antibiotic Given: n/a MEMBRANES Membranes Rupture Method: Artificial Rupture of Membranes: 01/10/2017 05:18 Length of Rupture (hr): 3.50 Amniotic Fluid Color: Clear Amniotic Fluid Amount: Small Amniotic Fluid Odor: Normal STAGES OF LABOR Stage 1 hr: 7 Stage 1 min: 0 Stage 2 hr: 0 Stage 2 min: 34 Stage 3 hr: 0 Stage 3 min: 2 Total Time in Labor hr: 7 Total Time in Labor min: 36 VAGINAL DELIVERY Episiotomy: None Laceration Extension: N/A Laceration Type: None Laceration Repair: Not Applicable Sponge Count Correct: N/A Sharps Count Correct: N/A CSECTION DELIVERY Primary Indication: N/A Secondary Indication: N/A CSection Incidence: N/A Labor: N/A Elective: N/A CSection Incision: N/A BABY A INFORMATION Infant Delivery Date/Time: 01/10/2017 08:48 Method of Delivery: Vaginal Born in Route : No : N/A Forceps: N/A Vacuum Extraction: N/A Shoulder Dystocia : No PRESENTATION/POSITION BABY A Presentation: Cephalic Cephalic Presentation: Vertex Vertex Position: Right Occipital Anterior Breech Presentation: N/A PLACENTA INFORMATION BABY A Placenta Delivery Time : 01/10/2017 08:50 Placenta Method of Delivery: Spontaneous Placenta Status: Delivered SCORES BABY A Heart Rate 1 min: >100 bpm Resp Effort 1 min: Good Cry Reflex Irritability 1 min: Cough or Sneeze or Pulls Away Muscle Tone 1 min: Active Motion Color 1 min: Blue/Pale Resuscitation Effort 1 min: Tactile Stimulation SCORE 1 MIN: 8 Heart Rate 5 min: >100 bpm Resp Effort 5 min: Good Cry Reflex Irritability 5 min: Cough or Sneeze or Pulls Away Muscle Tone 5 min: Active Motion Color 5 min: Body [place], Extremities Blue Resuscitation Effort 5 min: Tactile Stimulation SCORE 5 MIN: 9 INFANT INFORMATION BABY A Gestational Age at Delivery: 40.0 Gestational Status: Full Term- 39- 40.6 Weeks Outcome : Liveborn Infant Condition : Stable Infant Sex: Male IDENTIFICATION BABY A Verification Date/Time: 01/10/2017 08:57 ID Band Number: [id number] Mother's Name Verified: Yes Infant RN Verifying Infant: S Araceli RN; Solomon Yepez RN WEIGHT/LENGTH BABY A Infant Birthweight (gm): 3390 Weight (lb): 7 Weight (oz): 8 Length (in): 20.75 Length (cm): 52.71 CORD INFORMATION BABY A No. Cord Vessels: 3 Nuchal Cord : N/A Cord Blood Taken: Yes-For Eval (Mom's Blood Type - or O+) Suction: Mouth; Nose ASSESSMENT BABY A Infant Complications: None Physical Findings at Delivery: Molding of the Head Respirations: Appears Normal Skin to Skin: No Skin to Skin Time (min): 0 Lead Technician/ALS Called : No Infant Care By: Trevor Camilo RN Transferred To: Remains with Mother BABY B INFORMATION : N/A SIGNATURES Assignment: Adan Cantu MD Signature: with User ID: [email or web address] : with User ID: [email or web address]
[2017-01-10] MEDS ORDERED: OXYTOCIN/NORMAL SALINE 1,000 ML IV PRN (10:47)
[2017-01-10] MEDS ORDERED: DIPH/PERTUSS(ACELL)/TETANUS VAC/PF 0.5 ML SYR (>=10YO) IM PRN (10:47)
[2017-01-10] MEDS ORDERED: BENZOCAINE/MENTHOL AEROSOL SPRAY 56 ML TOP PRN (10:47)
[2017-01-10] MEDS ORDERED: ZOLPIDEM TARTRATE 5 MG TABLET PO PRN (10:47)
[2017-01-10] MEDS ORDERED: MEASLES,MUMPS&RUBELLA VACC/PF 0.5 ML VIAL SUBCUT PRN (10:47)
[2017-01-10] MEDS ORDERED: DIBUCAINE 1% OINTMENT 28 GM TP PRN (10:47)
[2017-01-10] MEDS ORDERED: IBUPROFEN 800 MG TABLET ONE (10:54)
--- NOTE | 2017-01-10 12:35 | Admission Physical ---
Datetime Report Generated by CPN: 01/10/2017 12:34 CURRENT ADMISSION Hx Assessment: The History has been Reviewed and is Current Chief Complaint: Uterine Contractions Indication for Induction: Not Applicable Admit Plan: Admit to Unit; Initiate Labor Protocol ALLERGIES Medication Allergies: No Medication Allergies: No Known Allergies (01/09/2017) Medication Allergies: No Known Allergies (01/08/2017) Medication Allergies: No Known Allergies (12/24/2016) Medication Allergies: No Known Allergies (04/29/2016) Latex: No Latex Allergies (Annotations: Data stored by [facility] on behalf of user) Food Allergies: None Environmental Allergies: None OBSTETRICAL HISTORY EDC: 01/10/2017 00:00 : 2 Para: 0 Term: 0 : 0 SAB: 0 IAB: 1 Ectopic: 0 Livin Cesareans: 0 VBACs: 0 Multiple Births: 0 Gestational Diabetes: No Rh Sensitization: No Incompetent Cervix: No SKIP: No Infertility: No ART Treatment: No Uterine Anomaly: No IUGR: No Hx Previous C/S: No Macrosomia: No Hx Loss/Stillborn: No PIH: No Hx : No Placenta Previa/Abruption: No Depression/PP Depression: No PTL/PROM: No Post Hemorrhage: No Current Procedures: Ultrasound; NST Obstetrical History Comments: G1:EAB 8 weeks G2: current - abnormal AFP, negative follow-up tests SEE RECORDS Alcohol: No Marijuana : No Cocaine: No Other Illicit Drugs: No Cigarettes: Never Smoker. [id number] MEDICAL HISTORY Diabetes: No Blood Transfusion: No Pulmonary Disease (Asthma, TB): No Breast Disease: No Hypertension: No Carton Forming Machine Tender Surgery: No Heart Disease: No Hosp/Surgery: No Autoimmune Disorder: No Anesthetic Complications: No Kidney Disease: No Abnormal Pap Smear: No Neuro/Epilepsy: No Psychiatric Disorders: No Other Medical Diseases: No Hepatitis/Liver Disease: No Significant Family History: No Varicosities/Phlebitis: No Trauma/Violence : No Thyroid Dysfunction: Yes Medical History Comments: Hyperthyroidism INFECTIOUS HISTORY Gonorrhea: No Genital Herpes: No Chlamydia: Yes Tuberculosis: No Syphilis: No Hepatitis: No HIV/AIDS Exposure: No Rash or Viral Illness: No HPV: No Infectious History Comments: positive chlamydia 05/2016 , neg SHANTE PHYSICAL EXAM General: Normal HEENT: Deferred Neurologic: Deferred Thyroid: Deferred Heart: Normal Lungs: Normal Breast: Deferred Back: Deferred Abdomen: Normal Genitourinary Exam: Normal Extremities: Normal DTRs: Normal Pelvic Type: Adequate Vital Signs: Reviewed; Within Normal Limits VAGINAL EXAM Contraction Comments: q1-4 MEMBRANES Membranes: Ruptured Membranes: Intact Amniotic Fluid Color: Clear FETUS A EGA: 40.0 FHR- Baseline: 130 Variability: Moderate 6-25bpm Accelerations: 15X15 Decelerations: Variable FHR Category: Category II Admit Comment: 39+6 presented several times today with protracted latent phase. Early labor now. GBS neg. Plan epidural as needed. pain meds given PLANS FOR LABOR AND DELIVERY Labor and Delivery: None Pain Management: Epidural Feeding Preference: Breast Benefit of Breast Feed Discussed: Yes Circumcision: Yes INFORMED CONSENT Informed Consent Obtained: Vaginal Delivery; Risks, Benefits and Alternatives Discussed Signature: with User ID: [email or web address]
[2017-01-10] MEDS: IBUPROFEN 800 MG TABLET PO SCH ×2 (13:18→22:30)
[2017-01-10] MEDS: DOCUSATE SODIUM 100 MG CAPSULE PO SCH (18:04)
[2017-01-10] MEDS: FERROUS SULFATE 325 MG TABLET PO SCH (18:04)
--- NOTE | 2017-01-10 19:01 | L&D Flow Sheet ---
LD Flowsheet Datetime Report Generated by CPN: 01/10/2017 19:00 Datetime: 01/10/2017 10:33 NBP Sys/Jane/Mean (mmHg): 123 (QS system process) : 74 (QS system process) : 91 (QS system process) Pulse: 85 (QS system process) Datetime: 01/10/2017 10:02 NBP Sys/Jane/Mean (mmHg): 127 (QS system process) : 62 (QS system process) : 87 (QS system process) Pulse: 74 (QS system process) Datetime: 01/10/2017 09:32 NBP Sys/Jane/Mean (mmHg): 112 (QS system process) : 67 (QS system process) : 85 (QS system process) Pulse: 88 (QS system process) Temperature (F): 98.6 (Nereyda Yepez RN) Temperature (C): 37.0 (QS system process) Datetime: 01/10/2017 09:17 NBP Sys/Jane/Mean (mmHg): 115 (QS system process) : 72 (QS system process) : 88 (QS system process) Pulse: 93 (QS system process) Datetime: 01/10/2017 09:15 Stage of : Recovery (Nereyda Yepez, CAIN) Respirations: 16 (Nereyda Yepez, RN) Temperature Route: Oral (Nereyda Yepez, RN) Pain Scale: 2 (Nereyda Yepez, RN) Pain Presence: Constant (Nereyda Yepez, RN) Pain Type: Dull (Nereyda Yepez, RN) Pain Location: Perineum (Nereyda Yepez, RN) Pain Goal: 1 (Nereyda Yepez RN) Pain Relief Measures: Comfort Measures (Nereyda Yepez, CAIN) Datetime: 01/10/2017 09:02 NBP Sys/Jane/Mean (mmHg): 119 (QS system process) : 73 (QS system process) : 91 (QS system process) Pulse: 103 (QS system process) Datetime: 01/10/2017 08:48 Stage of : Recovery (Nereydasamuel Yepez, CAIN) Datetime: 01/10/2017 08:45 Monitor Mode: External; Palpation (Nereyda Yepez, RN) Frequency (min): 2-3 (Nereyda Yepez, RN) Quality: Mild/Moderate (Nereyda Yepez, RN) Duration (sec): 80-90 (Nereyda Yepez, RN) Duration Criteria: Less than Two 120 Second Contractions (Nereyda Yepez, RN) Pattern: Normal: <= 5 Contractions in 10 Minutes (Nreeyda Yepez, RN) Resting Tone (Palpate): Relaxed (Nereyda Yepez, RN) Monitor Mode: External US (Nereyda Yepez, RN) FHR Baseline Rate : 130 (Nereyda Yepez, RN) FHR Baseline Changes: No Baseline Change (Nereyda Yepez, RN) Variability: Moderate 6-25 bpm (Nereyda Lucho, RN) Accelerations: 15X15 (Nereyda Yepze, RN) Decelerations: Early (Nereyda Yepez, RN) Datetime: 01/10/2017 08:42 Pushing: Coached on Pushing; Urge to Push (Nereyda Yepez, RN) Pushing Position: Pushing with Contractions; Pushing Lithotomy (Nereyda Yepez, RN) Pushing Progress: Descent with Pushing; Molding Noted; Presenting Part Visible; Pushing Effectively with Contractions (Nereyda Yepez, RN) Communication Comments: O2 removed (Nereyda Yepez, RN) Datetime: 01/10/2017 08:35 Pushing: Coached on Pushing; Urge to Push (Nereyda Lucho, RN) Pushing Position: Pushing with Contractions; Pushing Lithotomy (Nereyda Lucho, RN) Pushing Progress: Descent with Pushing; Presenting Part Visible (Nereyda Lucho, RN) Datetime: 01/10/2017 08:34 Communication Comments: bed broken down (Nereyda Lucho, RN) Datetime: 01/10/2017 08:33 Patient Position/Activity: Left Tilt (Nereyda Lucho, RN) Datetime: 01/10/2017 08:30 Monitor Mode: External; Palpation (Nereyda Yepez, RN) Frequency (min): 1.5-3 (Nereyda Yepez, RN) Quality: Mild/Moderate (Nereyda Lucho, RN) Duration (sec): 80-90 (Nereyda Lucho, RN) Duration Criteria: Less than Two 120 Second Contractions (Nereyda Lucho, RN) Pattern: Normal: <= 5 Contractions in 10 Minutes (Nereyda Lucho, RN) Resting Tone (Palpate): Relaxed (Nereyda Lucho, RN) Monitor Mode: External US (Nereyda Yepez, RN) FHR Baseline Rate : 130 (Nereyda Lucho, RN) FHR Baseline Changes: No Baseline Change (Nereyda Lucho, RN) Variability: Moderate 6-25 bpm (Nereyda Lucho, RN) Accelerations: Prolonged (Nereyda Lucho, RN) Decelerations: None (Nereyda Lucho, RN) Datetime: 01/10/2017 08:28 Pushing: Coached on Pushing; Urge to Push (Nereyda Yepez, RN) Pushing Position: Pushing with Contractions (Nereyda Lucho, RN) Stage 2 Comments: pushing in hands and knees (Nereyda Lucho, RN) Datetime: 01/10/2017 08:24 Patient Position/Activity: Hands-Knees (Nereyda Lucho, RN) Datetime: 01/10/2017 08:23 Communication Comments: A Emmel CNM at bedside (Mj Wrightfleet, RN) Datetime: 01/10/2017 08:20 Actions for Decelerations: Side to Side; Hands and Knees; Oxygen Applied; Provider Reviewed Strip; Provider Notified (Mj Charles RN) Patient Care Comments: o2 applied (Nereyda Yepez RN) Datetime: 01/10/2017 08:15 Monitor Mode: External; Palpation (Nereyda Yepez RN) Frequency (min): 1.5-3 (Nereyda Yepez RN) Quality: Mild/Moderate (Nereyda Yepez RN) Duration (sec): 80-110 (Nereyda Yepez RN) Duration Criteria: Less than Two 120 Second Contractions (Nereyda Yepez RN) Pattern: Normal: <= 5 Contractions in 10 Minutes (Nereyda Yepez RN) Resting Tone (Palpate): Relaxed (Nereyda Yepez RN) Monitor Mode: External US (Nereyda Yepez, CAIN) FHR Baseline Rate : 135 (Nereyda Yepez RN) FHR Baseline Changes: No Baseline Change (Nereyda Yepez RN) Variability: Moderate 6-25 bpm (Nereyda Yepez RN) Accelerations: 15X15 (Nereyda Yepez RN) Decelerations: None (Nereyda Yepez RN) Datetime: 01/10/2017 08:14 Dilatation (cm): 10.0 (Nereyda Yepez, RN) Effacement (%): 100 (Nereyda Yepez, RN) Station: 2 (Nereyda Yepez, RN) Exam by: A. Khadijah, CNM (Nereyda Yepez, RN) Datetime: 01/10/2017 08:08 Communication: Provider at Bedside (Nereyda Yepez, RN) Datetime: 01/10/2017 08:02 NBP Sys/Jane/Mean (mmHg): 121 (QS system process) : 70 (QS system process) : 88 (QS system process) Pulse: 114 (QS system process) LaborFlag: Antepartum (QS system process) Datetime: 01/10/2017 08:00 Monitor Mode: External; Palpation (Nereyda Yepez, RN) Frequency (min): 2-4.5 (Nereyda Yepez, RN) Quality: Mild/Moderate (Nereyda Yepez, RN) Duration (sec): 110-180 (Nereyda Yepez, RN) Duration Criteria: Less than Two 120 Second Contractions (Nereyda Yepez, RN) Pattern: Normal: <= 5 Contractions in 10 Minutes (Nereyda Yepez, RN) Resting Tone (Palpate): Relaxed (Nereyda Yepez, RN) Monitor Mode: External US (Nereyda Yepez, RN) FHR Baseline Rate : 130 (Nereyda Yepez, RN) FHR Baseline Changes: No Baseline Change (Nereyda Yepez, RN) Variability: Moderate 6-25 bpm (Nereyda Yepez, RN) Accelerations: 15X15 (Nereyda Yepez, RN) Decelerations: None (Nereyda Yepez, RN) Datetime: 01/10/2017 07:47 NBP Sys/Jane/Mean (mmHg): 115 (QS system process) : 56 (QS system process) : 80 (QS system process) Pulse: 123 (QS system process) Communication Comments: patient instructed to not bear down with contractions (Nereyda Yepez RN) LaborFlag: Antepartum (QS system process) Datetime: 01/10/2017 07:45 Monitor Mode: External; Palpation (Nereyda Yepez RN) Frequency (min): 2-3 (Nereyda Yepez RN) Quality: Mild/Moderate (Nereyda Yepez, CAIN) Duration (sec): 110-120 (Nereyda Yepez, CAIN) Duration Criteria: Less than Two 120 Second Contractions (Nereyda Yepez RN) Pattern: Normal: <= 5 Contractions in 10 Minutes (Nereyda Yepez RN) Resting Tone (Palpate): Relaxed (Nereyda Yepez, CAIN) Monitor Mode: External US (Nereyda Yepez, CAIN) FHR Baseline Rate : 130 (Nereyda Yepez RN) FHR Baseline Changes: No Baseline Change (Nereyda Yepez RN) Variability: Moderate 6-25 bpm (Nereyda Yepez, RN) Accelerations: 15X15 (Nereyda Yepez, RN) Decelerations: None (Nereyda Yepez, CAIN) Patient Position/Activity: Tailors (Nereyda Yepez RN) Datetime: 01/10/2017 07:35 NBP Sys/Jane/Mean (mmHg): 119 (QS system process) : 88 (QS system process) : 99 (QS system process) Pulse: 96 (QS system process) LaborFlag: Antepartum (QS system process) Datetime: 01/10/2017 07:30 Monitor Mode: External; Palpation (Nereyda Yepez, RN) Frequency (min): 2-3 (Nereyda Yepez, RN) Quality: Mild/Moderate (Nereyda Lucho, RN) Duration (sec): 70-90 (Nereyda Lucho, RN) Duration Criteria: Less than Two 120 Second Contractions (Nereyda Yepez, RN) Pattern: Normal: <= 5 Contractions in 10 Minutes (Nereyda Lucho, RN) Resting Tone (Palpate): Relaxed (Nereyda Yepez, RN) Monitor Mode: External US (Nereyda Yepez, RN) FHR Baseline Rate : 130 (Nereyda Yepez, RN) FHR Baseline Changes: No Baseline Change (Nereyda Yepez, RN) Variability: Moderate 6-25 bpm (Nereyda Lucho, RN) Accelerations: 15X15 (Nereyda Lucho, RN) Decelerations: None (Nereyda Yepez, RN) Datetime: 01/10/2017 07:15 Monitor Mode: External (Ofelia Artem, RN) Frequency (min): 1.5-3 (Ofelia Artem, RN) Quality: Strong (Ofelia Artem, RN) Duration (sec): 50-90 (Ofelia Artem, RN) Duration Criteria: Less than Two 120 Second Contractions (Ofelia Artem, RN) Pattern: Normal: <= 5 Contractions in 10 Minutes (Ofleia Artem, RN) Resting Tone (Palpate): Relaxed (Ofelia Artem, RN) Monitor Mode: External US (Ofelia Artem, RN) FHR Baseline Rate : 125 (Ofelia Artem, RN) Variability: Moderate 6-25 bpm (Ofelia Artem, RN) Accelerations: None (Ofelia Artem, RN) Decelerations: None (Ofelia Artem, RN) Hygiene: Underpad Changed (Ofelia Artem, RN) Communication Comments: Report passed to Mayelin Yepez RN and care relinquished at this time (Ofelia Artem, RN) Datetime: 01/10/2017 07:03 NBP Sys/Jane/Mean (mmHg): 124 (QS system process) : 76 (QS system process) : 94 (QS system process) Pulse: 81 (QS system process) LaborFlag: Antepartum (QS system process) Datetime: 01/10/2017 07:00 Monitor Mode: External (Ofelia Artem, RN) Frequency (min): 1.5-4 (Ofelia Artem, RN) Quality: Strong (Ofelia Artem, RN) Duration (sec): 60-80 (Ofelia Artem, RN) Duration Criteria: Less than Two 120 Second Contractions (Ofelia Artem, RN) Pattern: Normal: <= 5 Contractions in 10 Minutes (Ofelia Artem, RN) Resting Tone (Palpate): Relaxed (Ofelia Artem, RN) Monitor Mode: External US (Ofelia Artem, RN) FHR Baseline Rate : 125 (Ofelia Artem, RN) Variability: Moderate 6-25 bpm (Ofelia Artem, RN) Accelerations: 15X15 (Ofelia Artem, RN) Decelerations: None (Ofelia Artem, RN)
--- NOTE | 2017-01-11 06:01 | L&D Current Admission ---
Current Admit Datetime Report Generated by CPN: 01/11/2017 06:00 ADMISSION INFORMATION Current Admit Date/Time: 01/10/2017 01:17 (01/09/2017 01:17:Ofelia Mcgill RN) Reason for Admission: Onset of Labor (01/09/2017 01:17:Ofelia Mcgill RN) Chief Complaint: Contractions (01/09/2017 01:17:Ofelia Mcgill RN) Medications During : Vitamin (01/09/2017 01:17:Ofelia Mcgill RN) Meds During -Oth: methimazole (01/09/2017 01:17:Ofelia Mcgill RN) EGA per Dates: 40.0 (01/09/2017 01:17:QS system process) EGA per US: 40.0 (01/09/2017 01:17:QS system process) Method of Arrival: Wheelchair (01/09/2017 01:17:Ofelia Mcgill RN) Admitted From: Home (01/09/2017 07:20:Ofelia Mcgill RN) Reason for Induction: Not Applicable (01/09/2017 01:17:Ofelia Mcgill RN) Records Available: Yes (01/09/2017 01:17:Ofelia Mcgill RN) General Admission Information: Reviewed; Confirmed (01/09/2017 01:17:Ofelia Mcgill RN) General Admission Reviewed By: Irasema Mcgill RN (01/09/2017 01:17:Ofelia Mcgill RN) BELONGINGS/ADVANCED DIRECTIVES Valuables/Personal Effects: Purse/Wallet; Cell Phone; Jewelry (01/09/2017 01:17:Ofelia Mcgill RN) Other Belongings: see paper belongings form (01/09/2017 01:17:Ofelia Mcgill RN) Disposition of Belongings: Kept with Patient (01/09/2017 01:17:Ofelia Mcgill RN) Advance Direct for Healthcare: No, and Wants No Information (01/09/2017 01:17:Ofelia Mcgill RN) Durable Power of Slots Manager: No (01/09/2017 01:17:Ofelia Mcgill RN) Living Will: No (01/09/2017 01:17:Ofelia Mcgill RN) Organ Donor: No (01/09/2017 01:17:Ofelia Mcgill RN) Pt Rights Information Given: No (01/09/2017 01:17:Ofelia Mcgill RN) Pt Understands Pt Rights: No (01/09/2017 01:17:Ofelia Mcgill RN) LEARNING ASSESSMENT Knowledge Level: Understands L_D Process; Understands Care Activities; Had Pre-Hospital Education; Understands Diagnosis (01/09/2017 01:17:Ofelia Mcgill RN) Barriers to Learning: None (01/09/2017 01:17:Ofelia Mcgill RN) Learning Readiness: Motivated (01/09/2017 01:17:Ofelia Mcgill RN) Learns Best By: 1 to 1 Instruction (01/09/2017 01:17:Ofelia Mcgill RN) Learning Needs: Labor and Delivery Process; Pain Management; Symptoms to Report; Treatment Plan; Medication; Diagnosis; Nutrition; Equipment; Infant Care; Community Resources (01/09/2017 01:17:Ofelia Mcgill RN) DOMESTIC VIOLANCE SCREENING Dom Viol Threatened/Hurt: No (01/09/2017 01:17:Ofelia Mcgill RN) Hx of Abuse/Neglect past 2yrs: No (01/09/2017 01:17:Ofelia Mcgill RN) Feel Unsafe Going Home: No (01/09/2017 01:17:Ofelia Mcgill RN) Addt'l Observ Indicating Abuse: No (01/09/2017 01:17:Ofelia Mcgill RN) Reason Unable to Complete Screen: N/A, Screen Completed (01/09/2017 01:17:Ofelia Mcgill RN) Considered Personal Harm/Suicide: No (01/09/2017 01:17:fOelia Mcgill RN) NUTRITIONAL/FUNCTIONAL SCREENING Problem with Appetite >5 Days: No (01/09/2017 01:17:Ofelia Mcgill RN) Chew/Swallow Difficulties: No (01/09/2017 01:17:Ofelia Mcgill RN) Inappropriate Wt Gain/Loss: No (01/09/2017 01:17:Ofelia Mcgill RN) Presence Skin Breakdown/Ulcer: No (01/09/2017 01:17:Ofelia Mcgill RN) Special Diet: No (01/09/2017 01:17:Ofelia Mcgill RN) Pt Requests Basket Braider Visit: No (01/09/2017 01:17:Ofelia Mcgill RN) Hx of Any of the Following?: N/A (01/09/2017 01:17:Ofelia Mcgill RN) New Diagnosis of: N/A (01/09/2017 01:17:Ofelia Mcgill RN) Requires Assist w/Ambulation: No (01/09/2017 01:17:Ofelia Mcgill RN) Uses Assist Device to Ambulate: No (01/09/2017 01:17:Ofelia Mcgill RN) Pt Requires Help w/ADL's: No (01/09/2017 01:17:Ofelia Mcgill RN)
--- NOTE | 2017-01-11 06:01 | L&D General Admission ---
General Admit Datetime Report Generated by CPN: 01/11/2017 06:00 INFORMATION Patient Age: 21 (12/24/2016 10:56:QS system process) EDC: 01/10/2017 00:00 (12/24/2016 11:04:Chata López RN) EDC per Ultrasound: 01/10/2017 00:00 (12/24/2016 11:04:Vanna Ferris RN) LMP: 04/05/2016 00:00 (12/24/2016 11:04:Vanna Ferris RN) : 2 (12/24/2016 11:04:Chata López RN) Para: 0 (12/24/2016 11:04:Chata López RN) Term: 0 (12/24/2016 11:04:Vanna Ferris RN) : 0 (12/24/2016 11:04:Vanna Ferris RN) Spontaneous Abortions: 0 (12/24/2016 11:04:Vanna Ferris RN) Induced Abortions: 1 (12/24/2016 11:04:Chata López RN) Livin (12/24/2016 11:04:Vanna Ferris RN) Cesareans: 0 (12/24/2016 11:04:Vanna Ferris RN) VBACs: 0 (12/24/2016 11:04:Vanna Ferris RN) Ectopic: 0 (12/24/2016 11:04:Vanna Ferris RN) Multiple Births: 0 (12/24/2016 11:04:Vanna Ferris RN) Baby, Number in Womb: 1 (12/24/2016 11:04:Vanna Ferris RN) CARE [facility] (12/24/2016 11:04:Chata López RN) Month of 1st Visit: 05/2016 (12/24/2016 11:04:Vanna Ferris RN) Adequate Care: Yes (12/24/2016 11:04:Vanna Ferris RN) Prepregnancy Weight (lb): 131 (12/24/2016 11:04:Vanna Ferris RN) Prepregnancy Weight (kg): 59.5 (12/24/2016 11:04:QS system process) Height (in): 67 (01/10/2017 13:37:QS system process) ALLERGIES Medication Allergy: No (12/24/2016 11:04:Chata López RN) Medication Allergies: No Known Allergies (01/09/2017) (01/09/2017 07:03:QS system process) Latex Allergy: No Latex Allergies (Annotations: Data stored by [facility] on behalf of user) (12/24/2016 11:04:Chata López RN) Food Allergies: None (12/24/2016 11:04:Vanna Ferris RN) Environmental Allergies: None (12/24/2016 11:04:Vanna Ferris RN) COMMUNICATION Primary Language: Eritrean (12/24/2016 11:04:Chata López RN) Medical Tx Preferred Language: Eritrean (12/24/2016 11:04:Vanna Ferris RN) Communication Barrier(s): None (12/24/2016 11:04:Nereyda Yepez RN) DEMOGRAPHICS Address: [address] [place] [id number] (12/24/2016 10:56:QS system process) Zipcode: [address] (12/24/2016 10:56:QS system process) Home (12/24/2016 10:56:QS system process) SSN: [id number] (12/24/2016 10:56:QS system process) Next of Kin Name: HUAN TUCKER (12/24/2016 10:56:QS system process) Next of Kin (12/24/2016 10:56:QS system process) Next of Kin Relationship: OR (12/24/2016 10:56:QS system process) Date of : 1995 (12/24/2016 10:56:QS system process) Marital Status: Single (12/24/2016 10:56:QS system process) Sex: Female (12/24/2016 10:56:QS system process) Race: (12/24/2016 10:56:QS system process) Ethnicity: Non- or (12/24/2016 10:56:QS system process) Taoism: Samaritan (12/24/2016 10:56:QS system process) DRUG AND ALCOHOL USE Alcohol: No (12/24/2016 11:04:Vanna Ferris RN) Cigarettes: Never Smoker. [id number] (12/24/2016 11:04:Vanna Ferris RN) Marijuana: No (12/24/2016 11:04:Vanna Ferris RN) Cocaine: No (12/24/2016 11:04:Vanna Ferris RN) Other Illicit Drugs: No (12/24/2016 11:04:Vanna Ferris RN) VACCINE HISTORY Influenza Vaccine: No (12/24/2016 11:04:Bing Alvarado RN) Pneumococcal Vaccine: No (12/24/2016 11:04:Bing Alvarado RN) Tetanus Vaccine: No (12/24/2016 11:04:Bing Alvarado RN) Tdap Vaccine: Uncertain (12/24/2016 11:04:Bing Alvarado RN) Hepatitis B Vaccine: Uncertain (12/24/2016 11:04:Bing Alvarado RN) Hand Clerical Verifier: [facility] (12/24/2016 11:04:Nereyda Yepez RN) Feeding Preference: Breast (12/24/2016 11:04:Bing Alvarado RN) Benefit of Breast Feed Discussed: Yes (12/24/2016 11:04:Nereyda Yepez RN) Circumcision: Yes (12/24/2016 11:04:Ofelia Mcgill RN) Classes Attended: No (12/24/2016 11:04:Ofelia Mcgill RN) Tubal Ligation: No (12/24/2016 11:04:Bing Alvarado RN) Tubal Authorization Signed: N/A (12/24/2016 11:04:Bing Alvarado RN) Consent: N/A (12/24/2016 11:04:Bing Alvarado RN) Consent Signed: N/A (12/24/2016 11:04:Bing Alvarado RN) Pain Management Plans: Epidural (12/24/2016 11:04:Bing Alvarado RN) Plans for Labor and Delivery: None (12/24/2016 11:04:Ofelia Mcgill RN) Support Person: blayne (12/24/2016 11:04:Ofelia Mcgill RN) Support Person Relationship: Friend (12/24/2016 11:04:Ofelia Mcgill RN) Cultural/Spritual Practice: No (12/24/2016 11:04:Bing Alvarado RN) Spir/Cult Dietary Needs: No (12/24/2016 11:04:Bing Alvarado RN) LIVING SITUATION/DISCHARGE PLAN Living Arrangements: House (12/24/2016 11:04:Bing Alvarado RN) Adequate Access to:: Electric; Heat; Refrigeration; Plumbing/Running water; Phone; Transportation (12/24/2016 11:04:Ofelia Mcgill RN) WIC Program: Yes (12/24/2016 11:04:Ofelia Mcgill RN) Discharge Defective Cigarette Slitter Person: genaro (mom) (12/24/2016 11:04:Ofelia Mcgill RN) Person to Help after Discharge: nemaira (mom) (12/24/2016 11:04:Ofelia Mcgill RN) Currently Using Commun Resources: Yes (12/24/2016 11:04:Ofelia Mcgill RN) Specify Current Resource Used: Medicaid, WIC (12/24/2016 11:04:Ofelia Mcgill RN) Outside Agency/Tile Layer Supervisor: No (12/24/2016 11:04:Ofelia Mcgill RN) Car Seat for Discharge: Yes (12/24/2016 11:04:Bing Alvarado RN) Adoption Requested: No (12/24/2016 11:04:Bing Alvarado RN) Pt Contact w/ Post : N/A (12/24/2016 11:04:Bing Alvarado RN) LABS Blood Type: O Positive (12/24/2016 11:04:Chata López RN) Antibody Screen: neg (12/24/2016 11:04:Chata López RN) Hemoglobin: 11.4 L (01/10/2017 01:29:QS system process) Hematocrit: 33.3 L (01/10/2017 01:29:QS system process) MCV: 90 (01/10/2017 01:29:QS system process) Group Beta Strep: negative (12/24/2016 11:04:Chata López RN) Gonorrhea: Negative (12/24/2016 11:04:Chata López RN) Chlamydia: Negative (12/24/2016 11:04:Chata López RN) RPR/VDRL: Nonreactive (12/24/2016 11:04:Chata López RN) HIV Exposure Test: Negative (12/24/2016 11:04:Chata López RN) Hepatitis B: Negative (12/24/2016 11:04:Chata López RN) Rubella: Non-Immune (12/24/2016 11:04:Chata López RN) OB/PREVIOUS HISTORY LMP: 04/05/2016 00:00 (12/24/2016 11:04:Vanna Ferris RN) Previous Procedures: Ultrasound (12/24/2016 11:04:Vanna Ferris RN) Current Procedures: Ultrasound; NST (12/24/2016 11:04:Chata López RN) History of Previous : No (12/24/2016 11:04:Chata López RN) History of Gestational Diabetes: No (12/24/2016 11:04:Chata López RN) History of PIH: No (12/24/2016 11:04:Chata López RN) History of Incompetent Cervix: No (12/24/2016 11:04:Chata López RN) History of Placenta Previa/Abrup: No (12/24/2016 11:04:Chata López RN) History of Macrosomia: No (12/24/2016 11:04:Chata López RN) History of IUGR: No (12/24/2016 11:04:Chata López RN) History of Hemorrhage: No (12/24/2016 11:04:Chata López RN) History of Loss/Stillborn: No (12/24/2016 11:04:Chata López RN) History of : No (12/24/2016 11:04:Chata López RN) History of D (Rh) Sensitization: No (12/24/2016 11:04:Chata López RN) History Recurrent Loss/Stillborn: No (12/24/2016 11:04:Chata López RN) History Depression/PP Depression: No (12/24/2016 11:04:Chata López RN) History of Uterine Anomaly/SKIP: No (12/24/2016 11:04:Chata López RN) History of Infertility: No (12/24/2016 11:04:Chata López RN) History of ART Treatment: No (12/24/2016 11:04:Chata López RN) History of SKIP: No (12/24/2016 11:04:Chata López RN) Comments Obstetrical History: G1:EAB 8 weeks G2: current - abnormal AFP, negative follow-up tests (12/24/2016 11:04:Chata López RN) MEDICAL HISTORY Med Hx Diabetes: No (12/24/2016 11:04:Chata López RN) Med Hx Hypertension: No (12/24/2016 11:04:Chata López RN) Med Hx Heart Disease: No (12/24/2016 11:04:Chata López RN) Med Hx Autoimmune Disorder: No (12/24/2016 11:04:Chata López RN) Med Hx Kidney Disease/UTI: No (12/24/2016 11:04:Chata López RN) Med Hx Neurologic/Epilepsy: No (12/24/2016 11:04:Chata López RN) Med Hx Psychiatric Disorders: No (12/24/2016 11:04:Chata López RN) Med Hx Hepatitis/Liver Disease: No (12/24/2016 11:04:Chata López RN) Med Hx Varicosities/Phlebitis: No (12/24/2016 11:04:Chata López RN) Med Hx Thyroid Dysfunction: Yes (12/24/2016 11:04:Chata López RN) Med Hx Trauma/Violence: No (12/24/2016 11:04:Chata López RN) Med Hx Blood Transfusion: No (12/24/2016 11:04:Chata López RN) Med Hx Pulmonary (Asthma,TB): No (12/24/2016 11:04:Chata López RN) Med Hx Breast: No (12/24/2016 11:04:Chata López RN) Med Hx RESEARCH INSTRUMENTATION TECHNICIAN Surgery: No (12/24/2016 11:04:Chata López RN) Med Hx Hospitalization/Surgery: No (12/24/2016 11:04:Chata López RN) Med Hx Anesthetic Complications: No (12/24/2016 11:04:Chata López RN) Med Hx Abnormal Pap Smear: No (12/24/2016 11:04:Chata López RN) Other Medical Diseases: No (12/24/2016 11:04:Chata López RN) Med Hx Significant Family Hx: No (12/24/2016 11:04:Chata López RN) Details of Med/Surg Hx: Hyperthyroidism (12/24/2016 11:04:Vanna Ferris RN) INFECTIOUS HISTORY Inf Hx Gonorrhea: No (12/24/2016 11:04:Chata López RN) Inf Hx Chlamydia: Yes (12/24/2016 11:04:Chata López RN) Inf Hx Syphilis: No (12/24/2016 11:04:Chata López RN) Inf Hx HIV/AIDS: No (12/24/2016 11:04:Chata López RN) Inf Hx Human Papilloma Virus: No (12/24/2016 11:04:Chata López RN) Inf Hx Pt/Partner Genital Herpes: No (12/24/2016 11:04:Chata López RN) Inf Hx Tuberculosis/Exposure: No (12/24/2016 11:04:Chata López RN) Inf Hx Hepatitis B,C: No (12/24/2016 11:04:Chata López RN) Inf Hx Rash or Viral Illness: No (12/24/2016 11:04:Chata López RN) Details of Infectious Hx: positive chlamydia 05/2016 , neg SHANTE (12/24/2016 11:04:Chata López RN) GENETIC HISTORY Gen Hx Age >=35 at LISA: No (12/24/2016 11:04:Chata López RN) Gen Hx Thalassemia: No (12/24/2016 11:04:Chata López RN) Gen Hx Congenital Heart Defect: No (12/24/2016 11:04:Chata López RN) Gen Hx Neural Tube Defect: No (12/24/2016 11:04:Chata López RN) Gen Hx Down's Syndrome: No (12/24/2016 11:04:Chata López RN) Gen Hx Ilan-Sachs: No (12/24/2016 11:04:Chata López RN) Gen Hx Palmira: No (12/24/2016 11:04:Chata López RN) Gen Hx Familial Dysautonomia: No (12/24/2016 11:04:Chata López RN) Gen Hx Sickle Cell Disease/Trait: No (12/24/2016 11:04:Chata López RN) Gen Hx Hemophilia/Blood Disorder: No (12/24/2016 11:04:Chata López RN) Gen Hx Muscular Dystrophy: No (12/24/2016 11:04:Chata López RN) Gen Hx Cystic Fibrosis: No (12/24/2016 11:04:Chata López RN) Gen Hx Huntingtons Chorea: No (12/24/2016 11:04:Chata López RN) Gen Hx Mental Retardation/Autism: No (12/24/2016 11:04:Chata López RN) Gen Hx Tested for Fragile X: No (12/24/2016 11:04:Chata López RN) Gen Hx Other Inher/Chromosomal: No (12/24/2016 11:04:Chata López RN) Gen Hx Maternal Metabolic DO: No (12/24/2016 11:04:Chata López RN) Gen Hx Pt Father or FOB Defect: No (12/24/2016 11:04:Chata López RN) Gen Hx Other Genetic History: No (12/24/2016 11:04:Chata López RN) Gen Hx Drugs/Meds since LMP: No (12/24/2016 11:04:Chata López RN)
--- NOTE | 2017-01-11 06:16 | L&D Care Plan ---
LD CARE PLANS Datetime Report Generated by CPN: 01/11/2017 06:15 Datetime: 01/09/2017 21:29 Pain State: Risk For (Ofelia Mcgill RN) Related To: Labor and Delivery Process; Surgical Procedure; Complication(s) of ; Disease Process; Treatment and Procedures; Post (Ofelia Mcgill RN) Goal(s): Patients Pain will be Assessed and Managed; Patient will Verbalize Adequate Relief of Pain or the Ability to [place] with Current Pain (Ofelia Mcgill RN) Interventions: Assess Pain Severity on Scale of 0 (None) to 5 (Severe); Assess Type, Location and Intensity of Pain Each Time Client Reports Discomfort and Notify Provider if Unusal Pain Develops; Encourage Proper Breathing and Relaxation Techniques; Offer Alternatives Such as Repositioning, Calm Environment, Massages, Diversional Activities, Ice Pack, Splinting, and Ambulation; Administer Analgesics as Ordered; Assist with Epidural Placement as Appropriate; Evaluate Therapeutic Effectiveness of Medication and Treatments (Ofelia Mcgill RN) Outcome: Patient will Report Absence or Relief of Pain Consistent with Established Pain Goal (Ofelia Mcgill RN) Status: Ongoing (Ofelia Mcgill RN) Outcome: Patient will have a Decrease in Signs and Symptoms of Discomfort (Ofelia Mcgill RN) Status: Ongoing (Ofelia Mcgill RN) Outcome: Pain will be Controlled During Procedures (Ofelia Mcgill RN) Status: Ongoing (Ofelia Mcgill RN) Anxiety State: Risk For (Ofelia Mcgill RN) Related To: Labor and Delivery Process; Surgical Procedure; Perceived or Actual Threat to ; Fear of Unknown; Situational Crisis; Medical Interventions; Significant Life Event (Ofelia Mcgill RN) Goal(s): Patient will have Decreased Anxiety and be able to Function at Acceptable Levels (Ofelia Mcgill RN) Interventions: Assess Verbal and Nonverbal Behavioral Indicators of Anxiety; Assist Patient to Identify and Verbalize Symptoms of Anxiety; Identify and Demonstrate Techniques to Control Anxiety; Assist Patient with Coping Mechanisms to Manage Anxiety; Provide Theraputic Touch for the Patient; Explain to Patient, Using a Calm Reassuring Approach and Nonmedical Terms, All Activities, Procedures, and Concerns; Instruct Patient and Family about Post Discharge Care, Limitations, Symptoms to Report and Resources Available (Ofelia Mcgill RN) Outcome: Patient will Identify, Verbalize and Demonstrate Techniques to Control Anxiety (Ofelia Mcgill RN) Status: Ongoing (Ofelia Mcgill RN) Outcome: Patient's Posture, Facial Expressions, Gestures and Activity Level will Reflect Decreased Anxiety (Ofelia Mcgill RN) Status: Ongoing (Ofelia Mcgill RN) Outcome: Patient will Verbalize a Sense of Control and/or Acceptance of the Situation (Ofelia Mcgill RN) Status: Ongoing (Ofelia Mcgill RN) Outcome: Patient will Identify and Utilize Support Person (Ofelia Mcgill RN) Status: Ongoing (Ofelia Mcgill RN) Knowledge Deficit State: Risk For (Ofelia Mcgill RN) Related To: Labor and Delivery Process; Surgical Procedures; Treatment and Procedures; Impending Alterations in Family Dynamics; Feeding and Infant Care; Community Resources and Available Support Mechanisms (Ofelia Mcgill RN) Goal(s): Patient will Accurately Verbalize Understanding of Plan of Care and Treatment; Patient and Family will Accurately Verbalize Understanding of the Disease Process (Ofelia Mcgill RN) Interventions: Assess Motivation and Willingness of Patient/Family to Learn; Assess Preferred Learning Mode: One to One Instruction, Reading, Videos, Group Discussion or Demonstration; Assess Barriers to Learning: Pain, Emotional State, Language Barrier, Cognitive Impairment, Visual or Hearing Deficits; Assess Patient and Family Knowledge of Disease Process, Medications and Treatment; Discuss Therapy and/or Treatment Options, Describe Rationale Behind Management, Therapy and Treatment Recommendations; Instruct Patient and Family on Signs and Symptoms to Report; Instruct Patient and Family on Medication Effects and Side Effects; Provide Appropriate and Timely Education Using Multiple Techniques; Provide Patient and Family with Support Group Information and Resources; Give Clear and Thorough Explanations and Demonstrations (Ofelia Mcgill RN) Outcome: Patient and Family will Verbalize Understanding of Condition, Treatment and Signs and Symptoms to Report (Ofelia Mcgill RN) Status: Ongoing (Ofelia Mcgill RN) Outcome: Patient will Identify Perceived Learning Needs and Express Motivation to Learn (Ofelia Mcgill RN) Status: Ongoing (Ofelia Mcgill RN) Outcome: Patient will Verbalize Understanding of Desired Content, and/or Performs Desired Skill Prior to Discharge (Ofelia Mcgill RN) Status: Ongoing (Ofelia Mcgill RN) Infection State: Risk For (Ofelia Mcgill RN) Related To: Surgical Procedures; Prolonged Labor or Induction; Premature/Prolonged Rupture of Membranes; Invasive Procedures; Altered Tissue Integrity (Ofelia Mcgill RN) Goal(s): The Patient will be Free of Infection, Vital Signs Stable and Lab Work within Normal Parameters (Ofelia Mcgill RN) Interventions: Instruct and Reinforce Proper Handwashing, Hygiene, and Care Techniques to Patient and Family; Monitor Vital Signs; Monitor Patient for the Following Signs of Infection: Fever, Abdominal Tenderness, Unusual Discharge; Monitor Aminiotic Fluid, Urine and Lochia for Color and Odor; Observe Wounds, Incisions and Invasive Line Sites for Redness, Drainage and Edema; Assess IV Sites per Hospital Policy; Monitor Lab and Test Results and Notify Provider of Abnormal Findings; Assess Nutritional Status and Promote Good Nutrition (Ofelia Mcgill RN) Outcome: Patient will Remain Free of Infection (Ofelia Mcgill RN) Status: Ongoing (Ofelia Mcgill RN) Outcome: Infection will be Recognized Early to Allow for Prompt Treatment (Ofelia Mcgill RN) Status: Ongoing (Ofelia Mcgill RN) Outcome: Patient will have Vital Signs Within Expected Range (Ofelia Mcgill RN) Status: Ongoing (Ofelia Mcgill RN) Fluid Volume State: Risk For (Ofelia Mcgill RN) Related To: Surgical Procedures; Prolonged Labor or Induction; Hemorrhage; Disease Process; Anesthesia; Altered Renal Function (Ofelia Mcgill RN) Goal(s): Patient will Achieve and Maintain a Balanced Fluid Volume Status; Hemodynamically Stable (Ofelia Mcgill RN) Interventions: Monitor Vital Signs; Auscultate Breath Sounds; Monitor Patient for Skin Turgor, Mucous Membranes, Dry Skin, Weakness, Headaches and Confusion; Provide Oral Fluids as Ordered; Initiate and Maintain Intravenous Fluids as Ordered; Monitor Intake and Output as Indicated Per Patient Status; Accurately Measure Blood Loss; Monitor Lab and Test Results as Obtained and Notify Provider of Abnormal Findings; Monitor Patient's Weight (Ofelia Mcgill RN) Outcome: Patient will have Clear Lung Sounds (Ofelia Mcgill RN) Status: Ongoing (Ofelia Mcgill RN) Outcome: Patient will have Vital Signs within Expected Range (Ofelia Mcgill RN) Status: Ongoing (Ofelia Mcgill RN) Outcome: Urine Output will be within Expected Range (Ofelia Mcgill RN) Status: Ongoing (Ofelia Mcgill RN) Outcome: Patient will have Minimal Generalized or Upper Extremity Edema (Ofelia Mcgill RN) Status: Ongoing (Ofelia Mcgill RN) Injury State: Risk For (Ofelia Mcgill RN) Related To: Labor and Delivery Process; Anesthesia; Altered Coagulation; Risk to Status; Uteroplacental Perfusion; Hemorrhage, Placenta Previa and or Placental Abruption; Uterine Rupture (Ofelia Mcgill RN) Goal(s): Patient will Remain Free from Injury (Ofelia Mcgill RN) Interventions: Monitoring as per Hospital Protocol; Assess Neurological Status; Perform Risk Assessment of Patients with Induction and ; Perform Fall Risk Assessment and Prevention per Hospital Protocol; Perform DVT Risk Assessment and Prophylaxis per Hospital Protocol; Ensure that Oxygen, Suction, and Resuscitation Medications and Equipment are Readily Available; Confirm Patient ID Prior to Procedure(s) and Medication Administration per Hospital Policy (Ofelia Mcgill RN) Outcome: Successful Fall Risk Prevention (Ofelia Mcgill RN) Status: Ongoing (Ofelia Mcgill RN) Outcome: Patient will Deliver without Adverse [place] (Ofelia Mcgill RN) Status: Ongoing (Ofelia Mcgill RN) Outcome: Patient's Neurological Status will Remain Stable (Ofelia Mcgill RN) Status: Ongoing (Ofelia Mcgill RN) Impaired Skin Integrity State: Risk For (Ofelia Mcgill RN) Related To: Vaginal Delivery; Surgical Procedures; Prolonged Bedrest; Altered Tissue Integrity; Invasive Procedures (Ofelia Mcgill RN) Goal(s): Patient will Maintain Optimal Skin Integrity, Free of Breakdown, Injury or Infection (Ofelia Mcgill RN) Interventions: Complete Screening for Pressure Ulcer Risk and Initiate Protocol per Hospital Policy; Monitor Site of Skin Impairment for Color Changes, Redness, Swelling, Warmth, Pain or Other Signs of Infection; Encourage and Assist with Position Changes; Monitor Patient's Mobility Status; Provide Adequate Nutrition and Fluids; Teach Patient Appropriate Hygienic Care; Teach Patient/Family Skin Care Management (Ofelia Mcgill RN) Outcome: Patient will not have Evidence of Injury Such as Skin Breakdown, Scrapes, Cuts, or Bruising (Ofelia Mcgill RN) Status: Ongoing (Ofelia Mcgill RN) Outcome: Patient will Report Any Altered Sensation or Pain at Site of Skin Impairment (Ofelia Mcgill RN) Status: Ongoing (Ofelia Mcgill RN) Outcome: Patients Incisions and Wounds will be without Signs or Symptoms of Infection (Ofelia Mcgill RN) Status: Ongoing (Ofelia Mcgill RN) Outcome: Patient will Demonstrate Understanding of Plan to Heal Skin and Prevent Reinjury and Verbalize Risk Factors (Ofelia Mcgill RN) Status: Ongoing (Ofelia Mcgill RN) Parenting Impaired State: Risk For (Ofelia Mcgill RN) Related To: Compromised Health Status; Apprehension Related to [place] Care; Adolescent Parent; Developmental Disability (Ofelia Mcgill RN) Goal(s): Parents will Demonstrate Progressive Parenting Behaviors (Ofelia Mcgill RN)
[2017-01-11] MEDS: IBUPROFEN 800 MG TABLET PO SCH ×3 (06:23→21:25)
[2017-01-11 07:42] LABS: HEMOGLOBIN 10.9 g/dL (12.0-15.5); HGB HCT DIFFERENCE 0.7; MEAN CORPUSCULAR HEMOGLOBIN 30.8 pg (27.0-33.4); MEAN CORPUSCULAR VOLUME 91 fl (80-97); RED BLOOD COUNT 3.53 10^6/uL (3.72-5.28); RED CELL DISTRIBUTION WIDTH 14.3 % (11.5-14.0); WHITE BLOOD COUNT 17.7 10^3/uL (4.0-10.5)
--- NOTE | 2017-01-11 09:04 | PDOC PROGRESS REPORT ---
Subjective-OB Subjective: Post Delivery Day: 1 21 year old. Denies any needs at this time, lochia is stable, pain well controlled, voiding without difficulty. Physical Exam (OB) Vital Signs: Temp Pulse Resp BP Pulse Ox 98.1 F 57 L 15 121/65 99 01/11/17 08:01 01/11/17 08:01 01/11/17 08:01 01/11/17 08:01 01/11/17 08:01 Intake & Output 01/10/17 01/11/17 01/12/17 06:59 06:59 06:59 Intake Total 480 Output Total 400 Balance 80 Weight 72 kg - PIH/Pre-Eclampsia Clonus: Negative Headache: Absent Epigastric Pain: No Visual Changes: No - Lochia Lochia Amount: Moderate 25-50 ml Lochia Color: Rubra/Red - Abdomen Description: Round Hernia Present: No Fundal Description: Firm Fundal Height: u/u - u/2 Objective-Diagnostic Laboratory: 01/11/17 07:08 01/11/17 07:08 WBC 17.7 H RBC 3.53 L Hgb 10.9 L Hct 32.0 L MCV 91 MCH 30.8 MCHC 34.0 RDW 14.3 H Plt Count 259 Assessment and Plan(PN) - Assessment and Plan (1) Vaginal delivery Is this a current diagnosis for this admission?: YesPlan: routine pp care (2) Acute blood loss anemia Is this a current diagnosis for this admission?: YesPlan: increase dietary iron ferrous sulfate - Time Spent with Patient Time with patient: Less than 15 minutes Critical Time spent with patient: Less than 15 minutes Medications reviewed and adjusted accordingly: Yes - Disposition Anticipated Discharge: Home Within: within 24 hours
[2017-01-11] MEDS: DOCUSATE SODIUM 100 MG CAPSULE PO SCH ×2 (10:05→18:10)
[2017-01-11] MEDS: SENNOSIDES/DOCUSATE 8.6-50 MG 1 EACH TABLET PO SCH (10:05)
[2017-01-11] MEDS: PRENATAL VITAMIN W-O CA NO5/FE FUMARATE/FA CAPSULE PO SCH (10:06)
[2017-01-11] MEDS: FERROUS SULFATE 325 MG TABLET PO SCH ×2 (10:06→18:10)
[2017-01-12] MEDS: IBUPROFEN 800 MG TABLET PO SCH (06:06)
[2017-01-12 08:08] VITALS: BP 124/64
--- NOTE | 2017-01-12 09:32 | PDOC PROGRESS REPORT ---
Subjective-OB Subjective: Post Delivery Day: 21 year old. Denies any needs at this time Doing well, holding baby, breast feeding, eating well, no c/o,scant lochia Physical Exam (OB) Vital Signs: Temp Pulse Resp BP Pulse Ox 98.0 F 63 12 124/64 100 01/12/17 08:52 01/12/17 08:52 01/12/17 08:52 01/12/17 07:46 01/12/17 08:52 Intake & Output 01/11/17 01/12/17 01/13/17 06:59 06:59 06:59 Intake Total 480 Output Total 400 Balance 80 - PIH/Pre-Eclampsia Clonus: Negative Headache: Absent Epigastric Pain: No Visual Changes: No - Lochia Lochia Amount: Small 10-25 ml Lochia Color: Rubra/Red - Abdomen Description: Tender Hernia Present: No Fundal Description: Firm Fundal Height: u/u - u/2 Objective-Diagnostic Laboratory: 01/11/17 07:08 Assessment and Plan(PN) - Assessment and Plan (1) Vaginal delivery Is this a current diagnosis for this admission?: Yes (2) Acute blood loss anemia Is this a current diagnosis for this admission?: Yes - Time Spent with Patient Time with patient: Less than 15 minutes Medications reviewed and adjusted accordingly: Yes - Disposition Anticipated Discharge: Home Within: Other - home today
--- NOTE | 2017-01-12 09:36 | PDOC DISCHARGE SUMMARY ---
Final Diagnosis Discharge Date: 01/12/17 - Final Diagnosis (1) Vaginal delivery Is this a current diagnosis for this admission?: Yes (2) Acute blood loss anemia Is this a current diagnosis for this admission?: Yes Discharge Data - Discharge Medication Home Medications: Methimazole 5 mg PO DAILY 12/24/16 Pnv with Ca,No.72/Iron/FA [Pnv Plus Multivit Tab] 1 tab PO DAILY Gestational Age: 39.6 Reason(s) for Admission: Onset of Labor Procedures: Ultrasound Intrapartum Procedure(s): Spontaneous Vaginal Delivery - [place] Data Baby 1 Male at 1 minute: 8 at 5 minutes: 9 Weight: 3.402 kg Home with Mother: Yes Complications: No - Diagnosis Test Laboratory: Temp Pulse Resp BP Pulse Ox 98.0 F 63 12 124/64 100 01/12/17 08:52 01/12/17 08:52 01/12/17 08:52 01/12/17 07:46 01/12/17 08:52 01/09/17 01/10/17 01/11/17 21:09 01:29 07:08 RBC 3.69 L 3.53 L Hgb 11.4 L 10.9 L Hct 33.3 L 32.0 L Urine Opiates Screen NEGATIVE - Discharge information/Instructions Discharge Activity: Activity As Tolerated, No Lifting Over 10 Pounds, Pelvic Rest, No tub bath Discharge Diet: As Tolerated, Regular Disposition: HOME, SELF-CARE Follow up with: [facility] in: 4, Weeks
[2017-01-12] MEDS: SENNOSIDES/DOCUSATE 8.6-50 MG 1 EACH TABLET PO SCH (10:14)
[2017-01-12] MEDS: FERROUS SULFATE 325 MG TABLET PO SCH (10:14)
[2017-01-12] MEDS: PRENATAL VITAMIN W-O CA NO5/FE FUMARATE/FA CAPSULE PO SCH (10:14)
[2017-01-12] MEDS: DOCUSATE SODIUM 100 MG CAPSULE PO SCH (10:14)
== END 2017-01-12 14:17 | disposition home or self-care (01) | DRG 775 ==
LOC: LC 20:57 → LR 01-10 01:21 → 2S 01-10 12:33
PROVIDERS: ADMIT Obstetrics & Gynecology; ATTEND Obstetrics & Gynecology
PROC: 10E0XZZ Delivery of Products of Conception, External Approach (ICD-10-PCS; principal; 2017-01-10)
PROC: 4A1HXCZ Monitoring of Products of Conception, Cardiac Rate, External Approach (ICD-10-PCS; 2017-01-10)
PROC: 10907ZC Drainage of Amniotic Fluid, Therapeutic from Products of Conception, Via Natural or Artificial Opening (ICD-10-PCS; 2017-01-10)
DX: O99.284 Endocrine, nutritional and metabolic diseases complicating childbirth (principal); D62 Acute posthemorrhagic anemia; O99.02 Anemia complicating childbirth; O76 Abnormality in fetal heart rate and rhythm complicating labor and delivery; E05.90 Thyrotoxicosis, unspecified without thyrotoxic crisis or storm; Z37.0 Single live birth; Z3A.40 40 weeks gestation of pregnancy
CPT/HCPCS: 36415; 80307; 81005; 85025; 85027; 86592; 86850; 86900; 86901; 88307; J2300; J2590; J3490

== ENCOUNTER 2018-07-17 15:45 | Emergency (ER) | payer BC, MEDICAID ==
[2018-07-17 16:03] VITALS: BP 110/65
--- NOTE | 2018-07-17 17:07 | ER Document Report ---
ED General - General Mode of Arrival: Ambulatory Information source: Patient TRAVEL OUTSIDE OF THE [place] IN LAST 30 DAYS: No - General Chief Complaint: Vaginal Bleeding Stated Complaint: BLOOD IN URINE Time Seen by Provider: 07/17/18 16:46 Notes: Patient is a 23-year-old female presenting to the emergency department complaining of vaginal bleeding onset May 29, 2018. Patient states that she had a surgical (D&C) on May 29 in [place], [place] and has been continuously bleeding since 2 weeks after the procedure. Patient states that she is currently filling up one sanitary pad a day. Patient denies any dysuria , fevers, chills or vaginal pain. Patient states she had hypothyrodism with a previous and further states her latest was expected to miscarry. Patient states [facility] [place], [place]. (DUSTIN BAEKR) - Related Data Allergies/Adverse Reactions: No Known Allergies Allergy (Verified 07/17/18 15:50) Past Medical History - General Information source: Patient - Social History Smoking Status: Current Every Day Smoker Chew tobacco use (# tins/day): No Frequency of alcohol use: Occasional Drug Abuse: None Family History: Reviewed & Not Pertinent Patient has suicidal ideation: No Patient has homicidal ideation: No Pulmonary Medical History: Reports: Hx Asthma - Immunizations Immunizations up to date: Yes Hx Diphtheria, Pertussis, Tetanus Vaccination: Yes Hx Pneumococcal Vaccination: 10/24/00 Review of Systems - Review of Systems Constitutional: No symptoms reported EENT: No symptoms reported Cardiovascular: No symptoms reported Respiratory: No symptoms reported Gastrointestinal: No symptoms reported Genitourinary: No symptoms reported Female Genitourinary: See HPI, Vaginal bleeding Musculoskeletal: No symptoms reported Skin: No symptoms reported Hematologic/Lymphatic: No symptoms reported Neurological/Psychological: No symptoms reported -: Yes All other systems reviewed and negative Physical Exam - Vital signs Vitals: Temp Pulse Resp BP Pulse Ox 98.1 F 61 14 110/65 98 07/17/18 16:02 07/17/18 16:02 07/17/18 16:02 07/17/18 16:02 07/17/18 16:02 - Notes Notes: GENERAL: Alert, interacts well. No acute distress. HEAD: Normocephalic, atraumatic. EYES: Pupils equal, round, and reactive to light. Extraocular movements intact. No pallor. ENT: Oral mucosa moist, tongue midline. NECK: Full range of motion. Supple. Trachea midline. LUNGS: Clear to auscultation bilaterally, no wheezes, rales, or rhonchi. No respiratory distress. HEART: Regular rate and rhythm. No murmurs, gallops, or rubs. EXTREMITIES: Moves all 4 extremities spontaneously. Normal red palmar creases. NEUROLOGICAL: Alert and oriented x3. Normal speech. PSYCH: Normal affect, normal mood. SKIN: Warm, dry, normal turgor. No rashes or lesions noted. (DUSTIN BAKER) Course - Re-evaluation Re-evalutation: 07/17/18 18:20 Patient has been having trace vaginal bleeding filling approximately 1 pad a day. No fevers, chills to suggest infection, normal vitals. 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 Her was performed in [place]. I discussed with patient need to follow-up this coming week at [facility] as I suspect she will need an ultrasound versus a secondary D&C due to her trace but continued vaginal bleeding since her . Her symptoms been going on for several weeks and have not worsened, therefore I do not feel any urgency at this point to perform any labs or vaginal ultrasound this time as it can be done in outpatient setting, although return precautions were provided. (CODY CERNA) - Vital Signs Vital signs: Temp Pulse Resp BP Pulse Ox 98.1 F 61 14 110/65 98 07/17/18 16:02 07/17/18 16:02 07/17/18 16:02 07/17/18 16:02 07/17/18 16:02 - Laboratory Laboratory results interpreted by me: 07/17/18 17:35 Urine Protein 100 H Urine Blood LARGE H Urine Urobilinogen 4.0 H Ur Leukocyte Esterase TRACE H Discharge - Discharge Clinical Impression: Vaginal bleeding Condition: Good Disposition: HOME, SELF-CARE Instructions: Vaginal Bleeding ([facility]) Additional Instructions: Per our conversation, please follow-up with [facility] this week for reevaluation. They may need to reperform a D&C versus a vaginal ultrasound to determine the cause of your vaginal bleeding. Amna Attestation: 07/18/18 14:33 I personally performed the services described in the documentation, reviewed and edited the documentation which was dictated to the scribe in my presence, and it accurately records my words and actions. (CODY CERNA) Scribe Documentation - Scribe Written by Amna:: Amna Finn, 07/17/2018 17:07 acting as scribe for :: Frederick
[2018-07-17 17:59] LABS: APPEARANCE,URINE SLIGHTLY-CLOUDY; BILIRUBIN,URINE NEGATIVE (NEGATIVE); COLOR,URINE YELLOW; GLUCOSE, URINE NEGATIVE (NEGATIVE); KETONES,URINE NEGATIVE (NEGATIVE); LEUKOCYTE ESTERASE,URINE TRACE (NEGATIVE); NITRITE,URINE NEGATIVE (NEGATIVE); PROTEIN,URINE 100 mg/dL (NEGATIVE); URINE SPECIFIC GRAVITY 1.027
== END 2018-07-17 18:31 | disposition home or self-care (01) ==
LOC: ER 15:45
DX: N93.8 Other specified abnormal uterine and vaginal bleeding (principal); Z98.890 Other specified postprocedural states; F17.200 Nicotine dependence, unspecified, uncomplicated
CPT/HCPCS: 81001; 81025; 99283

== ENCOUNTER 2019-02-14 08:00 | Emergency (ER) | payer SELFPAY ==
--- NOTE | 2019-02-14 09:29 | ER Document Report ---
ED Medical Screen (RME) - General Chief Complaint: Vag Bleeding, +preg <12wks Stated Complaint: VAGINAL BLEEDING Time Seen by Provider: 02/14/19 09:23 Mode of Arrival: Ambulatory Information source: Patient TRAVEL OUTSIDE OF THE [place] IN LAST 30 DAYS: No - HPI Patient complains to provider of: preg, vag bleeding Notes: 02/14/19 09:27 Patient is here with complaints of being and vaginal bleeding. The patient is approximately 6 weeks . , 1 prior miscarriage. O+ blood type in computer. States started having some cramping and bleeding this morning. She complains of mild lower abdominal cramping now. No fevers. No nausea, vomiting. No dysuria. Exam No distress, nontoxic-appearing. Lungs clear and equal throughout. Heart sounds normal. Mild lower abdominal tenderness to limited triage abdominal exam. Plan CBC, CMP, quantitative hCG, urinalysis, ultrasound. Patient has an old positive blood type in the computer. An initial examination was made on the patient as part of the triage process, and it was determined a more comprehensive evaluation was necessary. Initial labs were ordered and patient was transferred to another provider in the ED who assumed care and finished evaluation and plan. - Related Data Allergies/Adverse Reactions: No Known Allergies Allergy (Verified 02/14/19 08:01) Past Medical History Pulmonary Medical History: Reports: Hx Asthma Renal/ Medical History: Denies: Hx Peritoneal Dialysis - Immunizations Immunizations up to date: Yes Hx Diphtheria, Pertussis, Tetanus Vaccination: Yes Physical Exam - Vital signs Vitals: Temp Pulse Resp BP Pulse Ox 98.2 F 70 14 114/66 98 02/14/19 08:05 02/14/19 08:05 02/14/19 08:05 02/14/19 08:05 02/14/19 08:05 Course - Vital Signs Vital signs: Temp Pulse Resp BP Pulse Ox 98.2 F 70 14 114/66 98 02/14/19 08:05 02/14/19 08:05 02/14/19 08:05 02/14/19 08:05 02/14/19 08:05
[2019-02-14 09:53] LABS: ABSOLUTE EOSINOPHILS # (AUTO) 0.2 10^3/uL (0.0-0.6); ABSOLUTE LYMPHOCYTES (AUTO) 1.8 10^3/uL (0.5-4.7); ABSOLUTE MONOCYTES (AUTO) 0.6 10^3/uL (0.1-1.4); ABSOLUTE NEUT (AUTO) 6.1 10^3/uL (1.7-8.2); BASOPHILS % (AUTO) 0.3 % (0-2); EOSINOPHILS % (AUTO) 1.9 % (0-6); HEMATOCRIT 39.1 % (36.0-47.0); HEMOGLOBIN 13.5 g/dL (12.0-15.5); LYMPHOCYTES % (AUTO) 20.3 % (13-45); MEAN CORPUSCULAR HEMOGLOBIN 30.9 pg (27.0-33.4); MEAN CORPUSCULAR HGB CONC 34.4 g/dL (32.0-36.0); MEAN CORPUSCULAR VOLUME 90 fl (80-97); MONOCYTES % (AUTO) 7.2 % (3-13); PLATELET COUNT 393 10^3/uL (150-450); RED BLOOD COUNT 4.36 10^6/uL (3.72-5.28); RED CELL DISTRIBUTION WIDTH 14.7 % (11.5-14.0); SEGMENTED NEUTROPHILS % (AUTO) 70.3 % (42-78); TOTAL CELLS COUNTED % (AUTO) 100 %; WHITE BLOOD COUNT 8.6 10^3/uL (4.0-10.5)
[2019-02-14 09:58] LABS: APPEARANCE,URINE CLOUDY; BILIRUBIN,URINE NEGATIVE (NEGATIVE); COLOR,URINE YELLOW; GLUCOSE, URINE NEGATIVE (NEGATIVE); KETONES,URINE NEGATIVE (NEGATIVE); LEUKOCYTE ESTERASE,URINE SMALL (NEGATIVE); NITRITE,URINE NEGATIVE (NEGATIVE); PROTEIN,URINE 30 mg/dL (NEGATIVE); URINE SPECIFIC GRAVITY 1.027
--- NOTE | 2019-02-14 10:22 | ER Document Report ---
ED GI/ - General Chief Complaint: Vag Bleeding, +preg <12wks Stated Complaint: VAGINAL BLEEDING Time Seen by Provider: 02/14/19 09:23 Mode of Arrival: Ambulatory Information source: Patient Notes: Patient is a 23-year-old female -0-1-1 with a previous miscarriage who presents today 6 weeks by dates with some vaginal bleeding with some ping-pong ball sized blood clots this morning. Some pelvic cramping. No radiation. No aggravating relieving factors. No dysuria, fevers, or vomiting. TRAVEL OUTSIDE OF THE [place] IN LAST 30 DAYS: No - Related Data Allergies/Adverse Reactions: No Known Allergies Allergy (Verified 02/14/19 09:29) Past Medical History - General Information source: Patient - Social History Smoking Status: Never Smoker Frequency of alcohol use: None Drug Abuse: None Family History: Reviewed & Not Pertinent Patient has suicidal ideation: No Patient has homicidal ideation: No Pulmonary Medical History: Reports: Hx Asthma Renal/ Medical History: Denies: Hx Peritoneal Dialysis - Immunizations Immunizations up to date: Yes Hx Diphtheria, Pertussis, Tetanus Vaccination: Yes Hx Pneumococcal Vaccination: 10/24/00 Review of Systems - Review of Systems Constitutional: denies: Fever EENT: denies: Eye discharge, Nose discharge Cardiovascular: denies: Chest pain Respiratory: denies: Short of breath Gastrointestinal: denies: Vomiting Genitourinary: denies: Dysuria Musculoskeletal: denies: Leg swelling Skin: Other - no hives. denies: Rash Neurological/Psychological: Other - no slurred speech -: Yes All other systems reviewed and negative Physical Exam - Vital signs Vitals: Temp Pulse Resp BP Pulse Ox 98.2 F 70 14 114/66 98 02/14/19 08:05 02/14/19 08:05 02/14/19 08:05 02/14/19 08:05 02/14/19 08:05 Notes: Reviewed vital signs and nursing note as charted by RN. CONSTITUTIONAL: Alert and oriented and responds appropriately to questions. Well-appearing; well-nourished HEAD: Normocephalic; atraumatic EYES: PERRL; Conjunctivae clear, sclerae is not pale CARD: Regular rate and rhythm; no murmurs; symmetric distal pulses RESP: Normal chest excursion without splinting or tachypnea; breath sounds clear and equal bilaterally; no wheezes, no rhonchi, no rales ABD/GI: Normal bowel sounds; non-distended; soft, non-tender currently to deep palpation of all 4 quadrants of the abdomen BACK: The back appears normal and is non-tender to palpation EXT: Normal ROM in all joints; non-tender to palpation; no edema SKIN: No acute lesions noted NEURO: CN 2-12 intact; 5/5 bilateral upper and lower extremity strength with sensation intact to light touch PSYCH: The patient's mood and manner are appropriate. Grooming and personal hygiene are appropriate. Course - Re-evaluation Re-evalutation: 02/14/19 10:21 Given the above history and physical we will obtain basic labs, transvaginal ultrasound, perform a pelvic examination, and reassess. Patient's blood type in the past was O+. Rhogam testing is not necessary at this time. 02/14/19 12:29 Labs and urine analysis as recorded. Quantitative hCG is recorded. Patient has just returned from ultrasound. Concern about a possible completed . 02/14/19 13:17 Pelvic examination shows no obvious external or internal lesions. Some minimal blood in the vaginal vault. Fingertip uterus. No adnexal masses or tenderness. 02/14/19 13:54 Pelvic labs as recorded. Urine culture has been sent. Patient has no dysuria or fevers. Patient has been given strict return precautions and told to return in 72 hours for repeat quantitative hCG. - Vital Signs Vital signs: Temp Pulse Resp BP Pulse Ox 98.2 F 70 14 114/66 98 02/14/19 08:05 02/14/19 08:05 02/14/19 08:05 02/14/19 08:05 02/14/19 08:05 - Laboratory Result Diagrams: 02/14/19 09:35 02/14/19 09:35 Laboratory results interpreted by me: 02/14/19 02/14/19 02/14/19 09:35 09:35 09:35 RDW 14.7 H Beta HCG, Quant 21.40 H Urine Protein 30 H Urine Blood LARGE H Urine Urobilinogen 2.0 H Ur Leukocyte Esterase SMALL H Discharge - Discharge Clinical Impression: Vaginal bleeding in patient at less than 20 weeks gestation Condition: Good Disposition: HOME, SELF-CARE Additional Instructions: Come back with any increased pain, fevers, lightheadedness or dizziness, heavy bleeding, or any other acute problems. Please return in 72 hours for repeat quantitative hCG as well as possibly repeat ultrasound testing.
[2019-02-14 10:25] LABS: ALANINE AMINOTRANSFERASE 19 U/L (9-52); ALBUMIN 4.1 g/dL (3.5-5.0); ALKALINE PHOSPHATASE 43 U/L (38-126); ANION GAP 8 (5-19); ASPARTATE AMINO TRANSFERASE 15 U/L (14-36); BILIRUBIN,DIRECT 0.2 mg/dL (0.0-0.4); BILIRUBIN,TOTAL 0.5 mg/dL (0.2-1.3); BLOOD UREA NITROGEN 9 mg/dL (7-20); CALCIUM 9.1 mg/dL (8.4-10.2); CARBON DIOXIDE 26 mmol/L (22-30); CHLORIDE 107 mmol/L (98-107); GLUCOSE 87 mg/dL (75-110); SODIUM 141.2 mmol/L (137-145); TOTAL PROTEIN 7.5 g/dL (6.3-8.2)
--- NOTE | 2019-02-14 12:58 | RADIOLOGY REPORT (SQ) ---
EXAM DESCRIPTION: U/S OB TRANSVAG W/DOPPLER COMPLETED DATE/TIME: 02/14/2019 12:33 pm REASON FOR STUDY: 6 weeks preg, vag bleeding COMPARISON: None. TECHNIQUE: Transvaginal static and realtime grayscale images acquired of the pelvis. Additional darren cted spectral and color Doppler images recorded. All images stored on PACs. CLINICAL AGE: 6 weeks BHC LIMITATIONS: None. FINDINGS: UTERUS: No visualized intrauterine . RIGHT ADNEXA: Normal ovary with normal vascular flow. No adnexal free fluid. No adnexal masses. LEFT ADNEXA: Normal ovary with normal vascular flow. No adnexal free fluid. No adnexal masses. FREE FLUID: Small amount. OTHER: No other significant finding. IMPRESSION: NO VISUALIZED INTRA- OR EXTRAUTERINE . bHCG LEVEL TOO LOW TO EXPECT VISUALIZATION OF . ECTOPIC CANNOT BE EXCLUDED. FOLLOW-UP ULTRASOUND AND SERIAL BHCG LEVELS STRONGLY RECOMMENDED TO ACCURATELY ASSESS STATU S. TECHNICAL DOCUMENTATION: JOB ID: [id number] [employer]- All Rights Reserved Reading location - IP/workstation name: [email or web address]
[2019-02-14 13:28] LABS: RBCS (WET MOUNT) 4+ RBCS SEEN; T.VAGINALIS (WET MOUNT) NO TRICHOMONAS SEEN; YEAST (WET MOUNT) NO YEAST SEEN
[2019-02-14 13:29] LABS: WBCS (WET MOUNT) RARE WBCS SEEN
[2019-02-14 13:56] VITALS: BP 121/65
[2019-02-14 14:48] LABS: CHLAM PCR NOT DETECTED (NOT DETECT); GON PCR NOT DETECTED (NOT DETECT)
== END 2019-02-14 14:12 | disposition home or self-care (01) ==
LOC: ER 08:00
DX: O20.9 Hemorrhage in early pregnancy, unspecified (principal); Z3A.01 Less than 8 weeks gestation of pregnancy
CPT/HCPCS: 36415; 76817; 80053; 81001; 84702; 85025; 87210; 87491; 87591; 93976; 99284

== ENCOUNTER 2019-02-20 19:55 | Emergency (ER) | payer SELFPAY ==
[2019-02-20 20:07] VITALS: BP 125/72
--- NOTE | 2019-02-20 23:24 | ER Document Report ---
ED General - General Chief Complaint: Insect Bite Stated Complaint: POSSIBLE INSECT BITE Time Seen by Provider: 02/20/19 23:12 TRAVEL OUTSIDE OF THE [place] IN LAST 30 DAYS: No - Related Data Allergies/Adverse Reactions: No Known Allergies Allergy (Verified 02/14/19 09:29) Past Medical History - Social History Family History: Reviewed & Not Pertinent Pulmonary Medical History: Reports: Hx Asthma Renal/ Medical History: Denies: Hx Peritoneal Dialysis - Immunizations Immunizations up to date: Yes Hx Diphtheria, Pertussis, Tetanus Vaccination: Yes Hx Pneumococcal Vaccination: 10/24/00 Physical Exam - Vital signs Vitals: Temp Pulse Resp BP Pulse Ox 98.7 F 106 H 15 125/72 98 02/20/19 20:06 02/20/19 20:06 02/20/19 20:06 02/20/19 20:06 02/20/19 20:06 Course - Vital Signs Vital signs: Temp Pulse Resp BP Pulse Ox 98.7 F 106 H 15 125/72 98 02/20/19 20:06 02/20/19 20:06 02/20/19 20:06 02/20/19 20:06 02/20/19 20:06
--- NOTE | 2019-02-20 23:26 | ER Document Report ---
HPI - HPI Time Seen by Provider: 02/20/19 23:12 Pain Level: 1 Context: Patient is a 23-year-old female who presents to the emergency department with an inquiry on hCG test. She was seen by the health department 2 days ago and was told that she had a miscarriage. She is here to have her labs redrawn. She also has a " spider bite" to her right forearm she states that she had noticed the area was red and raised with pus 3 days ago. She attempted to drain the area, but was unable to. Past medical history includes hyperthyroidism, but does not take any medications for it. - REPRODUCTIVE Reproductive: DENIES: : Past Medical History - Social History Family History: Reviewed & Not Pertinent Pulmonary Medical History: Reports: Hx Asthma Renal/ Medical History: Denies: Hx Peritoneal Dialysis - Immunizations Immunizations up to date: Yes Hx Diphtheria, Pertussis, Tetanus Vaccination: Yes Hx Pneumococcal Vaccination: 10/24/00 Vertical Provider Document - INFECTION CONTROL TRAVEL OUTSIDE OF THE [place] IN LAST 30 DAYS: No Course - Vital Signs Vital signs: Temp Pulse Resp BP Pulse Ox 98.7 F 106 H 15 125/72 98 02/20/19 20:06 02/20/19 20:06 02/20/19 20:06 02/20/19 20:06 02/20/19 20:06
[2019-02-20] MEDS ORDERED: LIDOCAINE 1%/EPINEPHRINE INJ 20 ML VIAL INJ ONE (23:29)
--- NOTE | 2019-02-20 23:31 | ER Document Report ---
ED Medical Screen (RME) - General Chief Complaint: Insect Bite Stated Complaint: POSSIBLE INSECT BITE Time Seen by Provider: 02/20/19 23:12 Notes: Patient is a 23-year-old female who presents emergency department with an inquiry on a repeat hCG test. She was seen here in the emergency department for days ago and was told that she was having a miscarriage. Denies any abdominal pain. States that she has had some bleeding. She also has a complaint of a " spider bite" to her right forearm. She noticed the area was red and raised 2 days ago. She attempted to squeeze the area, but was unable to express any pus. Exam: Abscess noted to right forearm. I have greeted and performed a rapid initial assessment of this patient. A comprehensive ED assessment and evaluation of the patient, analysis of test results and completion of medical decision making process will be conducted by an additional ED providers. TRAVEL OUTSIDE OF THE [place] IN LAST 30 DAYS: No - Related Data Allergies/Adverse Reactions: No Known Allergies Allergy (Verified 02/20/19 23:26) Past Medical History - Social History Frequency of alcohol use: None Drug Abuse: None Pulmonary Medical History: Reports: Hx Asthma Renal/ Medical History: Denies: Hx Peritoneal Dialysis - Immunizations Immunizations up to date: Yes Hx Diphtheria, Pertussis, Tetanus Vaccination: Yes Physical Exam - Vital signs Vitals: Temp Pulse Resp BP Pulse Ox 98.7 F 106 H 15 125/72 98 02/20/19 20:06 02/20/19 20:06 02/20/19 20:06 02/20/19 20:06 02/20/19 20:06 Course - Vital Signs Vital signs: Temp Pulse Resp BP Pulse Ox 98.7 F 106 H 15 125/72 98 02/20/19 20:06 02/20/19 20:06 02/20/19 20:06 02/20/19 20:06 02/20/19 20:06
[2019-02-21 00:09] LABS: ABSOLUTE BASOPHILS # (AUTO) 0.1 10^3/uL (0.0-0.2); ABSOLUTE EOSINOPHILS # (AUTO) 0.1 10^3/uL (0.0-0.6); ABSOLUTE LYMPHOCYTES (AUTO) 1.8 10^3/uL (0.5-4.7); ABSOLUTE MONOCYTES (AUTO) 0.9 10^3/uL (0.1-1.4); ABSOLUTE NEUT (AUTO) 8.4 10^3/uL (1.7-8.2); BASOPHILS % (AUTO) 0.5 % (0-2); EOSINOPHILS % (AUTO) 1.2 % (0-6); HEMATOCRIT 37.8 % (36.0-47.0); HEMOGLOBIN 12.6 g/dL (12.0-15.5); LYMPHOCYTES % (AUTO) 16.2 % (13-45); MEAN CORPUSCULAR HEMOGLOBIN 29.8 pg (27.0-33.4); MEAN CORPUSCULAR HGB CONC 33.2 g/dL (32.0-36.0); MEAN CORPUSCULAR VOLUME 90 fl (80-97); MONOCYTES % (AUTO) 7.7 % (3-13); PLATELET COUNT 368 10^3/uL (150-450); RED BLOOD COUNT 4.22 10^6/uL (3.72-5.28); RED CELL DISTRIBUTION WIDTH 14.4 % (11.5-14.0); SEGMENTED NEUTROPHILS % (AUTO) 74.4 % (42-78); TOTAL CELLS COUNTED % (AUTO) 100 %; WHITE BLOOD COUNT 11.3 10^3/uL (4.0-10.5)
--- NOTE | 2019-02-21 00:37 | RADIOLOGY REPORT (SQ) ---
EXAM DESCRIPTION: US TRANSVAGINAL COMPLETED DATE/TME: 02/20/2019 23:28 CLINICAL HISTORY: 23 years, Female, Possible miscarriage COMPARISON: None. TECHNIQUE: Transverse and longitudinal transvaginal sonographic images of the pelvis LIMITATIONS: None. FINDINGS: The uterus measures 7 x 5 x 4 cm. The endometrium measures 3 mm in thickness. There is a subtle 6 x 4 x 2 mm anechoic focus within the endometrial canal which likely reflects a small amount of fluid. The myometrium is homogenous. The right ovary measures 3 by 2 x 2 centimeters, the left 3 x 3 x 3 cm. Arterial and venous flow to both ovaries. No solid adnexal mass. Bilateral ovarian follicles. No free fluid IMPRESSION: Subtle tiny anechoic focus within the endometrial canal may reflect small amount of fluid with gestational sac not entirely excluded. Close clinical follow-up recommended. Correlate with beta hCG levels copyright 2010 [employer]- All Rights Reserved
--- NOTE | 2019-02-21 01:29 | ER Document Report ---
ED General - General Chief Complaint: Insect Bite Stated Complaint: POSSIBLE INSECT BITE Time Seen by Provider: 02/20/19 23:12 Mode of Arrival: Ambulatory Information source: Patient Notes: Patient is a 22-year-old female who comes emergency room with 2 complaints. First complaint is that she has what she thinks a spider bite on her right forearm. Been there for 2 days. Patient was seen here also on the of this month and had a miscarriage. She was instructed to come back in a few days to have a repeat beta-hCG done and an ultrasound. Patient states she has been feeling okay and there is been no abnormal bleeding currently. But she is here as requested to get the hCG quantitative done and the ultrasound was ordered as outpatient. TRAVEL OUTSIDE OF THE [place] IN LAST 30 DAYS: No - HPI Onset: Other - 2 days on spider bite 6 days on the miscarriage. Quality of pain: No pain Severity: None Pain Level: 1 Associated symptoms: denies: Fever, Nausea, Vomiting, Sore throat, Sweating, Weakness Exacerbated by: Denies Similar symptoms previously: No Recently seen / treated by doctor: No - Related Data Allergies/Adverse Reactions: No Known Allergies Allergy (Verified 02/20/19 23:26) Past Medical History - General Information source: Patient, [facility] Records - Social History Smoking Status: Never Smoker Cigarette use (# per day): No Chew tobacco use (# tins/day): No Smoking Education Provided: No Frequency of alcohol use: None Drug Abuse: None Lives with: Family Family History: Reviewed & Not Pertinent Patient has suicidal ideation: No Patient has homicidal ideation: No Pulmonary Medical History: Reports: Hx Asthma Renal/ Medical History: Denies: Hx Peritoneal Dialysis - Immunizations Immunizations up to date: Yes Hx Diphtheria, Pertussis, Tetanus Vaccination: Yes Hx Pneumococcal Vaccination: 10/24/00 Review of Systems - Review of Systems Constitutional: No symptoms reported EENT: No symptoms reported Cardiovascular: No symptoms reported Respiratory: No symptoms reported Gastrointestinal: No symptoms reported Genitourinary: No symptoms reported Female Genitourinary: No symptoms reported, Musculoskeletal: No symptoms reported Skin: See HPI, Other - Cellulitis Hematologic/Lymphatic: No symptoms reported Neurological/Psychological: No symptoms reported Physical Exam - Vital signs Vitals: Temp Pulse Resp BP Pulse Ox 98.7 F 106 H 15 125/72 98 02/20/19 20:06 02/20/19 20:06 02/20/19 20:06 02/20/19 20:06 02/20/19 20:06 Interpretation: Tachycardic - Notes Notes: PHYSICAL EXAMINATION: GENERAL: Well-appearing, well-nourished and in no acute distress. HEAD: Atraumatic, normocephalic. EYES: Pupils equal round and reactive to light, extraocular movements intact, conjunctiva are normal. ENT: Nares patent, oropharynx clear without exudates. Moist mucous membranes. NECK: Normal range of motion, supple without lymphadenopathy LUNGS: Breath sounds clear to auscultation bilaterally and equal. No wheezes rales or rhonchi. HEART: Tachycardic rate and rhythm without murmurs ABDOMEN: Soft, nontender, nondistended abdomen. No guarding, no rebound. No masses appreciated. Female : deferred Musculoskeletal: Normal range of motion, no pitting or edema. No cyanosis. NEUROLOGICAL: Normal speech, normal gait. Normal sensory, motor exams PSYCH: Normal mood, normal affect. SKIN; examination of patient's main area of concern is the right forearm. There is an area of approximately 3 cm x 3.5 cm on the forearm itself. It is minimally indurated without any fluctuance noted at this time. More of the inflammatory tissue that had a cellulitis. Currently I do not believe there is any reason to incision and drainage here etc. I believe we will get a good return. I am placing patient on 2 antibiotics and Diflucan for this area. Course - Re-evaluation Re-evalutation: 02/21/19 01:36 Given the size of this area and is not being very deep I do not believe that the abscess would qualify as an I&D at this time. Believe is more inflammatory t issue than it is an abscess. We will place patient on 2 antibiotics Bactrim and Keflex and Diflucan to cover for any kind of a yeast infection. Patient's ultrasound showed that the uterus was seven cm x 5 cm x 4 cm. The endometrial measures 3 mm in thickness there is a subtle 6 x 4 x 2 mm anechoic focus within the endometrial canal which likely reflects a small amount of fluid the myometrium is homogeneous. The right ovary measures 3 x 2 x 2 cm. The left 3 x 3 x 3 cm arterial and venous flow to both ovaries no solid adnexal mass bilateral ovarian follicular no free fluid. The impression showed subtle tiny anechoic focus within the endometrial canal may reflect small amount of fluid with gestational sac not entirely excluded. Close clinical follow-up recommended correlate with beta-hCG levels. Originally lab decided that it was up to them to cancel a quantitative hCG because he had a negative qualitative hCG. So we waited around until he noticed that they canceled without informing us. So at this point we are waiting for the quantitative to be run. I am assuming that it would be very low but at this point given that the ultrasound physician felt that it was necessary to qualify this with a quant. 02/21/19 01:59 Patient's quantitative on the 24 was 21.40 and today on the actual first it is 2.39. The ultrasound is states that there is possibility of this being a port ion of the gestational sac I will have her follow-up with her SLEEVE TAILOR for further intervention. - Vital Signs Vital signs: Temp Pulse Resp BP Pulse Ox 98.7 F 106 H 15 125/72 98 02/20/19 20:06 02/20/19 20:06 02/20/19 20:06 02/20/19 20:06 02/20/19 20:06 - Laboratory Result Diagrams: 02/20/19 23:50 Laboratory results interpreted by me: 02/20/19 23:50 WBC 11.3 H RDW 14.4 H Absolute Neutrophils 8.4 H Discharge - Discharge Clinical Impression: Cellulitis of right forearm, Complete miscarriage Condition: Stable Disposition: HOME, SELF-CARE Instructions: Cellulitis ([facility]), MRSA Cellulitis ([facility]) Additional Instructions: Home and warm moist compresses 3-4 times a day. This is a wash rag is warm and she can stand from the sink. Do not put in a microwave. Should eat form ahead or get deeper return to ER for an I&D of the area. Your quantitative on the 24th of this month was 21.40 today it is 2.39. Your ultrasound reads and I will give you a copy of this that there is a subtle tiny anechoic focus within the endometrial canal may reflect a small amount of fluid with gestational sac not entirely excluded close clinical follow-up recommended correlate with beta-hCG levels. I believe this means that with the number coming down that you have almost come to fruition with a complete miscarriage. I highly suggest already contact your primary TEST DECK SUPERVISOR and have them give you the greenlight if this is a complete miscarriage or not. Should you have any concerns or problems you may return to ER for recheck at any time. Also highly recommend that you give your body arrest before attempting to get again. Most SLEEVE TAILOR as I know suggest 6 months minimum 2-year best scenario. Should you have increase in size of your cellulitis or abscess return to ER for an I&D. Prescriptions: Cephalexin Monohydrate [Keflex 500 mg Capsule] 500 mg PO Q6H 7 Days #28 capsule Fluconazole [Diflucan] 150 mg PO ONCE PRN #1 tablet PRN Reason: Sulfamethoxazole/Trimethoprim [Bactrim Ds Tablet] 1 each PO BID #20 tablet Forms: Return to Work
[2019-02-21] MEDS ORDERED: CEPHALEXIN 500 MG CAPSULE PO ONE (02:00)
[2019-02-21] MEDS ORDERED: SULFAMETHOXAZOLE/TRIMETHOPRIM 800-160 MG TABLET PO ONE (02:00)
== END 2019-02-21 02:41 | disposition home or self-care (01) ==
LOC: ER 19:55
DX: L03.113 Cellulitis of right upper limb (principal); O03.9 Complete or unspecified spontaneous abortion without complication; J45.909 Unspecified asthma, uncomplicated; R00.0 Tachycardia, unspecified
CPT/HCPCS: 36415; 76830; 84702; 84703; 85025; 93976; 99283

== ENCOUNTER 2019-12-23 08:27 | Emergency (ER) | payer BC, OTHER ==
[2019-12-23 08:31] VITALS: BP 125/72
--- NOTE | 2019-12-23 08:46 | ER Document Report ---
HPI - HPI Time Seen by Provider: 12/23/19 08:37 Pain Level: 2 Context: 24-year-old female presents for left upper tooth pain for the past 2 days. Patient recently gave 5 days ago and states she is breast-feeding. Patient denies any complications with delivery or . Patient states she had similar tooth pain approximately 1 year ago with facial swelling and was told it may need to be pulled if the pain started again. Patient denies any fever. Patient states she has been taking ibuprofen for the pain. - CONSTITUTIONAL Constitutional: DENIES: Fever, Chills - REPRODUCTIVE LMP: gave tuesday Reproductive: DENIES: : Past Medical History - Social History Smoking Status: Never Smoker Chew tobacco use (# tins/day): No Frequency of alcohol use: None Drug Abuse: None Family History: Reviewed & Not Pertinent Patient has suicidal ideation: No Patient has homicidal ideation: No Pulmonary Medical History: Reports: Hx Asthma Renal/ Medical History: Denies: Hx Peritoneal Dialysis - Immunizations Immunizations up to date: Yes Hx Diphtheria, Pertussis, Tetanus Vaccination: Yes Hx Pneumococcal Vaccination: 10/24/00 Vertical Provider Document - CONSTITUTIONAL Agree With Documented VS: Yes Notes: GENERAL: Well-appearing, well-nourished and in no acute distress. HEAD: Atraumatic, normocephalic. EYES: Extraocular movements intact, sclera anicteric, conjunctiva are normal. ENT: Tooth #11 tenderness, minimal gum swelling, no obvious abscess. Nares patent, oropharynx clear without exudates. Uvula midline without edema. No trismus. No muffled voice. Moist mucous membranes. NECK: Normal range of motion, supple without lymphadenopathy or JVD. EXTREMITIES: Normal range of motion, no pitting or edema. No clubbing or cyanosis. NEUROLOGICAL: Cranial nerves II through XII grossly intact. Normal speech, normal gait. PSYCH: Normal mood, normal affect. SKIN: Warm, Dry, normal turgor, no rashes or lesions noted. - INFECTION CONTROL TRAVEL OUTSIDE OF THE [place] IN LAST 30 DAYS: No Course - Re-evaluation Re-evalutation: 12/23/19 24 y/o female c/o dental pain. Mild gum swelling but no obvious abscess at tooth #11. Nontoxic, well appearing. Uvula midline without edema. No facial swelling. Handling secretions well. PE otherwise unremarkable. Pt prescribed penicillin which is safe in . Pt also given several referrals to dentists. Return precautions given. Pt voices understanding and agrees with plan of care. - Vital Signs Vital signs: Temp Pulse Resp BP Pulse Ox 98.1 F 69 18 125/72 97 12/23/19 08:30 12/23/19 08:30 12/23/19 08:30 12/23/19 08:30 12/23/19 08:30 Discharge - Discharge Clinical Impression: Pain, dental Condition: Stable Disposition: HOME, SELF-CARE Instructions: Penicillin V K ([facility]), Toothache ([facility]) Additional Instructions: Please take penicillin as prescribed and finish all doses even if you feel better. Please follow up with one of the dentists listed in 3-5 days. Return immediately to ER for any worsening symptoms, including facial swelling, throat/tongue/lip swelling, inability to swallow, fever, or any other symptoms that are concerning to you. Prescriptions: Penicillin V Potassium [Penicillin Vk 500 mg Tablet] 500 mg PO QID #28 tablet Referrals: LUZ MARIA GATES DDS [NO LOCAL MD] - Follow up as needed SANDY AVILA DDS [NO LOCAL MD] - Follow up as needed HORACIO GAMINO DDS [NO LOCAL MD] - Follow up as needed CASSIA WASHINGTON DMD [NO LOCAL MD] - Follow up as needed KAYLIE DARBY DDS [NO LOCAL MD] - Follow up as needed
== END 2019-12-23 08:57 | disposition home or self-care (01) ==
LOC: ER 08:27
DX: K08.89 Other specified disorders of teeth and supporting structures (principal); R22.0 Localized swelling, mass and lump, head; J45.909 Unspecified asthma, uncomplicated
CPT/HCPCS: 99282